=== PATIENT | male | born 1940 | race Caucasian/White ===

== ENCOUNTER 2019-02-18 10:28 | Day surgery (SDC) | payer MEDICARE, BC ==
[~2019-02-18] VITALS: Ht 172.7 cm; Wt 85.2 kg
[2019-02-18] VITALS (8 sets, daily range): BP systolic 107–142; BP diastolic 70–90
[2019-02-18] MEDS ORDERED: midazolam 2 mg/2 ml injection ONE ×2 (10:30→12:03)
[2019-02-18] MEDS ORDERED: heparin 1,000 UNITS/NS 500ml 500 ML ONE (10:31)
[2019-02-18] MEDS ORDERED: iohexol 350MG/ML 100ml bottle IV ONE ×2 (10:31→12:18)
[2019-02-18] MEDS ORDERED: fentaNYL/PF 50MCG/1 ML 2ML syringe ONE (10:31)
[2019-02-18] MEDS ORDERED: LIDOcaine 1% (10mg/ml)w/preservative injection 20ml MDV ONE (10:31)
[2019-02-18] MEDS ORDERED: iohexol 350 MG/ML 50ML vial IV ONE (10:31)
[2019-02-18] MEDS ORDERED: diphenhydrAMINE 25mg capsule PO PRN (10:55)
[2019-02-18] MEDS ORDERED: normal saline 1,000 ML IV SCH (10:55)
[2019-02-18] MEDS ORDERED: METO-539 PO (10:58)
[2019-02-18] MEDS ORDERED: LANS30CA56 PO (10:58)
[2019-02-18] MEDS ORDERED: ALLO100T PO (10:58)
[2019-02-18] MEDS ORDERED: GABA-530 PO (10:58)
[2019-02-18] MEDS ORDERED: GLIM1TAB3 PO (10:58)
[2019-02-18] MEDS ORDERED: B12 (10:58)
[2019-02-18] MEDS ORDERED: FENO160T13 PO (10:58)
[2019-02-18] MEDS ORDERED: AMLO10TA PO (10:58)
[2019-02-18] MEDS ORDERED: ATRNS (10:58)
[2019-02-18] MEDS ORDERED: MUPI22OI30 TOP (10:58)
[2019-02-18] MEDS ORDERED: HYDR12.55 PO (10:58)
[2019-02-18] MEDS ORDERED: POTASSIUM (10:58)
[2019-02-18] MEDS ORDERED: APIX5TAB3 PO (10:58)
[2019-02-18] MEDS ORDERED: OMEP-297 PO (10:58)
[2019-02-18] MEDS ORDERED: LISI40TA4 PO (10:58)
[2019-02-18] MEDS ORDERED: AZEL30SP3 BOTHNARES (10:58)
[2019-02-18] MEDS ORDERED: MULT-1085 PO (10:58)
[2019-02-18] MEDS ORDERED: LINA5TAB4 PO (10:58)
[2019-02-18 11:16] LABS: BASOPHILS % (AUTO) 0.7 % (0-1); EOSINOPHILS # (AUTO) 0.1 X10'3 (0-0.9); EOSINOPHILS % (AUTO) 1.5 % (0-6); HEMATOCRIT 44.7 % (42.0-52.0); HEMOGLOBIN 15.6 g/dl (14.0-17.9); LYMPHOCYTES # (AUTO) 1.1 X10'3 (1.1-4.8); LYMPHOCYTES % (AUTO) 17.3 % (21-51); MEAN CORPUSCULAR HEMOGLOBIN 29.9 PG (27.0-31.0); MEAN CORPUSCULAR HGB CONC 34.8 g/dL (33.0-36.5); MEAN CORPUSCULAR VOLUME 85.7 FL (78-98); MEAN PLATELET VOLUME 9.2 FL (7.4-10.4); MONOCYTES # (AUTO) 0.4 X10'3 (0-0.9); MONOCYTES % (AUTO) 6.8 % (2-12); NEUTROPHILS # (AUTO) 4.7 X10'3 (1.8-7.7); NEUTROPHILS % (AUTO) 73.7 % (42-75); PLATELET COUNT 184 X10'3 (140-440); RED BLOOD COUNT 5.22 X10'6 (4.70-6.10); RED CELL DISTRIBUTION WIDTH 13.8 % (11.5-14.5); WHITE BLOOD COUNT 6.3 X10'3 (4.5-11.0)
[2019-02-18 11:26] LABS: ALBUMIN 4.1 G/DL (3.4-5.0); ANION GAP 11 (8-16); BLOOD UREA NITROGEN 26 MG/DL (7-18); BUN/CREATININE RATIO 21.8 (5.4-32.0); CALCIUM 9.3 MG/DL (8.5-10.1); CHLORIDE 107 MMOL/L (99-107); CREATININE 1.19 MG/DL (0.60-1.10); GLUCOSE 210 MG/DL (70-104); MAGNESIUM 1.8 MG/DL (1.5-2.4); POTASSIUM 3.6 MMOL/L (3.5-5.1); SODIUM 142 MMOL/L (135-145); TOTAL CARBON DIOXIDE 23.6 MMOL/L (24-32); eGFR 59 ML/MIN
[2019-02-18] MEDS ORDERED: heparin 1,000unit/ml 10ml vial 10 ML ONE (12:15)
[2019-02-18] MEDS ORDERED: clopidogrel 300mg tablet ONE (12:30)
[2019-02-18] MEDS ORDERED: ondansetron/PF 4mg/2ml inj IV PRN (12:55)
[2019-02-18] MEDS ORDERED: OXAZEpam 15mg capsule PO PRN (12:55)
[2019-02-18] MEDS ORDERED: normal saline 1000ml 1,000 ML IV SCH (12:55)
[2019-02-18] MEDS ORDERED: proCHLORperazine 10 MG/2 ml inj IV PRN (12:55)
== END 2019-02-18 15:55 | disposition home or self-care (01) ==
LOC: SSTAY O 10:28
PROVIDERS: ATTEND Internal Medicine Cardiovascular Disease
DX: R94.39 Abnormal result of other cardiovascular function study (principal); I25.118 Atherosclerotic heart disease of native coronary artery with other forms of angina pectoris; I35.0 Nonrheumatic aortic (valve) stenosis; E78.5 Hyperlipidemia, unspecified; I10 Essential (primary) hypertension; E11.9 Type 2 diabetes mellitus without complications; M10.9 Gout, unspecified; K21.9 Gastro-esophageal reflux disease without esophagitis; I48.20 Chronic atrial fibrillation, unspecified; Z95.5 Presence of coronary angioplasty implant and graft; Z72.89 Other problems related to lifestyle; Z79.899 Other long term (current) drug therapy
CPT/HCPCS: 36415; 80048; 82948; 83735; 85025; 85610; 93005; 93458; 99152; 99153; C1725; C1769; C1874; C1894; C9600; J1644; J2001; J2250; J3010; J7030; Q0163; Q9967; 92920; A4620; A6258; C1760

== ENCOUNTER 2019-03-01 16:04 | Inpatient (IN) | payer MEDICARE, BC ==
[2019-03-01] VITALS (7 sets, daily range): BP systolic 90–125; BP diastolic 56–67
[~2019-03-01] VITALS: Ht 172.7 cm; Wt 81.3 kg
[2019-03-01] MEDS: pantoprazole 40 MG vial IV SCH (08:00)
[2019-03-01] MEDS: K, MAG and/or Phos replacement - Verify level? MC SCH (08:00)
[~2019-03-01 16:04] MED LIST: ALLO100T PO; AMLO10TA PO; APIX5TAB3 PO; ATRNS; AZEL30SP3 BOTHNARES; B12; FENO160T13 PO; GABA-530 PO; GLIM1TAB3 PO; HYDR12.55 PO; LANS30CA56 PO; LINA5TAB4 PO; LISI40TA4 PO; METO-539 PO; MULT-1085 PO; MUPI22OI30 TOP; OMEP-297 PO; POTASSIUM
[2019-03-01] MEDS ORDERED: acetaminophen 325mg tablet PO PRN ×2 (17:45)
[2019-03-01] MEDS ORDERED: sodium phosphate inj. 15 MMOL in dextrose 5%-water 150 ML IV PRN (17:45)
[2019-03-01] MEDS ORDERED: magnesium 2GM in 50ml NS 50 ML IV PRN (17:45)
[2019-03-01] MEDS ORDERED: Neutra Phos packet PO PRN (17:45)
[2019-03-01] MEDS ORDERED: potassium Cl 20 mEq SR tablet PO PRN ×2 (17:45)
[2019-03-01] MEDS ORDERED: magnesium 4gm in 100ml NS 100 ML IV PRN (17:45)
[2019-03-01] MEDS ORDERED: ondansetron/PF 4mg/2ml inj IV PRN (17:45)
[2019-03-01] MEDS ORDERED: sodium phosphate inj. 30 MMOL in dextrose 5%-water 250 ML IV PRN (17:45)
[2019-03-01] MEDS ORDERED: magnesium Cl slow-release 64mg tablet PO PRN (17:45)
[2019-03-01] MEDS ORDERED: glucagon, human recombinant 1mg kit SUBCUT PRN (17:55)
[2019-03-01] MEDS ORDERED: dextrose ORAL solution 15 GM/59 ML bottle PO PRN ×2 (17:55)
[2019-03-01] MEDS ORDERED: dextrose 50%-water 50ml dispensing syringe IV PRN ×2 (17:55)
[2019-03-01] MEDS ORDERED: MESSAGE TO PHARMACY PO ONE (17:55)
[2019-03-01] MEDS: normal saline 1000ml 1,000 ML IV SCH (18:16)
--- NOTE | 2019-03-01 18:24 | NUR ---
Pt arrived to unit around 1720, A/O x3. Lung sounds clear, bowel sounds normal. Pulses weak but palpable, Cap refill <3sec. Resting now with no discomfort. Report given to carmella CHEN at night.
[2019-03-01 18:33] LABS: HEMOGLOBIN A1C 6.3 % (4.5-6.2)
[2019-03-01 18:34] LABS: PARTIAL THROMBOPLASTIN TIME 23 SECONDS (22-32)
[2019-03-01 18:37] LABS: BASOPHILS % (AUTO) 0.2 % (0-1); EOSINOPHILS % (AUTO) 0 % (0-6); HEMATOCRIT 26.7 % (42.0-52.0); HEMOGLOBIN 9.1 g/dl (14.0-17.9); LYMPHOCYTES # (AUTO) 1.5 X10'3 (1.1-4.8); LYMPHOCYTES % (AUTO) 9.6 % (21-51); MEAN CORPUSCULAR HEMOGLOBIN 29.7 PG (27.0-31.0); MEAN CORPUSCULAR HGB CONC 34.1 g/dL (33.0-36.5); MEAN CORPUSCULAR VOLUME 87.1 FL (78-98); MEAN PLATELET VOLUME 9.5 FL (7.4-10.4); MONOCYTES # (AUTO) 1.3 X10'3 (0-0.9); MONOCYTES % (AUTO) 8.1 % (2-12); NEUTROPHILS # (AUTO) 13.2 X10'3 (1.8-7.7); NEUTROPHILS % (AUTO) 82.1 % (42-75); PLATELET COUNT 120 X10'3 (140-440); RED BLOOD COUNT 3.06 X10'6 (4.70-6.10); RED CELL DISTRIBUTION WIDTH 14.9 % (11.5-14.5); WHITE BLOOD COUNT 16.1 X10'3 (4.5-11.0)
[2019-03-01 18:40] LABS: ALANINE AMINOTRANSFERASE 25 U/L (12-78); ALBUMIN 2.3 G/DL (3.4-5.0); ALBUMIN/GLOBULIN RATIO 1.4 (1.1-1.5); ALKALINE PHOSPHATASE 26 IU/L (46-116); ANION GAP 6 (8-16); ASPARTATE AMINO TRANSFERASE 13 U/L (10-37); BILIRUBIN,TOTAL 0.3 MG/DL (0.1-1.0); BLOOD UREA NITROGEN 65 MG/DL (7-18); BUN/CREATININE RATIO 33.9 (5.4-32.0); CHLORIDE 113 MMOL/L (99-107); CREATININE 1.92 MG/DL (0.60-1.10); GLUCOSE 237 MG/DL (70-104); POTASSIUM 4.6 MMOL/L (3.5-5.1); SODIUM 141 MMOL/L (135-145); TOTAL CARBON DIOXIDE 21.6 MMOL/L (24-32); TOTAL PROTEIN 3.9 G/DL (6.4-8.2); eGFR 34 ML/MIN
--- NOTE | 2019-03-01 18:45 | NUR ---
assumed care from Monse CHEN no questions or concerns after assuming care
[2019-03-01] MEDS: azelastine Nasal Spray bottle NS SCH (20:00)
[2019-03-01] MEDS: ipratropium 0.06% nasal spray 15ml NS SCH (20:00)
[2019-03-01] MEDS: insulin glargine (Lantus) pen - multi-dose SQ SCH (21:00)
--- NOTE | 2019-03-01 21:30 | NUR ---
patient is in bed appears to be sleeping eyes closed covers on rr even un labored no observable s/s of acute bleeding or stress at this time will continue to monitor
[2019-03-01 23:29] LABS: BASOPHILS % (AUTO) 0.2 % (0-1); EOSINOPHILS % (AUTO) 0 % (0-6); HEMATOCRIT 24.2 % (42.0-52.0); HEMOGLOBIN 8.3 g/dl (14.0-17.9); LYMPHOCYTES # (AUTO) 1.3 X10'3 (1.1-4.8); LYMPHOCYTES % (AUTO) 10.7 % (21-51); MEAN CORPUSCULAR HEMOGLOBIN 29.6 PG (27.0-31.0); MEAN CORPUSCULAR HGB CONC 34.2 g/dL (33.0-36.5); MEAN CORPUSCULAR VOLUME 86.7 FL (78-98); MEAN PLATELET VOLUME 9.3 FL (7.4-10.4); MONOCYTES % (AUTO) 7.8 % (2-12); NEUTROPHILS % (AUTO) 81.3 % (42-75); PLATELET COUNT 103 X10'3 (140-440); RED CELL DISTRIBUTION WIDTH 15.1 % (11.5-14.5); WHITE BLOOD COUNT 12.3 X10'3 (4.5-11.0)
--- NOTE | 2019-03-01 23:40 | NUR ---
patient in bed eyes closed rr even un labored no observable s/s of acute bleeding or stress at this time will continue to monitor
[2019-03-01] MEDS: gabapentin 100mg capsule PO SCH (23:55)
[2019-03-01] MEDS: mupirocin 2% nasal ointment 1gm UD NS SCH (23:55)
[2019-03-02] VITALS (21 sets, daily range): BP systolic 88–143; BP diastolic 48–97
--- NOTE | 2019-03-02 02:26 | NUR ---
patient in bed asked for a break from scd's, patients rr even un labored vital signs stable, no observable acute bleeding or stress at this time will continue to monitor
[2019-03-02 03:15] LABS: BASOPHILS % (AUTO) 0.1 % (0-1); EOSINOPHILS % (AUTO) 0 % (0-6); HEMATOCRIT 23.5 % (42.0-52.0); LYMPHOCYTES # (AUTO) 1.5 X10'3 (1.1-4.8); LYMPHOCYTES % (AUTO) 12.7 % (21-51); MEAN CORPUSCULAR HEMOGLOBIN 29.7 PG (27.0-31.0); MEAN CORPUSCULAR HGB CONC 34.1 g/dL (33.0-36.5); MEAN PLATELET VOLUME 9.7 FL (7.4-10.4); MONOCYTES # (AUTO) 0.8 X10'3 (0-0.9); MONOCYTES % (AUTO) 6.9 % (2-12); NEUTROPHILS # (AUTO) 9.3 X10'3 (1.8-7.7); NEUTROPHILS % (AUTO) 80.3 % (42-75); PLATELET COUNT 96 X10'3 (140-440); RED CELL DISTRIBUTION WIDTH 14.7 % (11.5-14.5); WHITE BLOOD COUNT 11.5 X10'3 (4.5-11.0)
[2019-03-02 03:23] LABS: ALANINE AMINOTRANSFERASE 22 U/L (12-78); ALBUMIN 2.3 G/DL (3.4-5.0); ALBUMIN/GLOBULIN RATIO 1.4 (1.1-1.5); ALKALINE PHOSPHATASE 26 IU/L (46-116); ANION GAP 10 (8-16); ASPARTATE AMINO TRANSFERASE 14 U/L (10-37); BILIRUBIN,TOTAL 0.2 MG/DL (0.1-1.0); BLOOD UREA NITROGEN 60 MG/DL (7-18); BUN/CREATININE RATIO 36.1 (5.4-32.0); CALCIUM 7.1 MG/DL (8.5-10.1); CHLORIDE 115 MMOL/L (99-107); CREATININE 1.66 MG/DL (0.60-1.10); GLUCOSE 189 MG/DL (70-104); MAGNESIUM 1.5 MG/DL (1.5-2.4); SODIUM 144 MMOL/L (135-145); TOTAL CARBON DIOXIDE 19.3 MMOL/L (24-32); eGFR 40 ML/MIN
--- NOTE | 2019-03-02 03:40 | NUR ---
patient in bed eyes closed rr even un labored no observable s?s of acute bleeding or stress at this time will continue to monitor
--- NOTE | 2019-03-02 04:40 | NUR ---
patient getting blood drawn appears to be in good mood making small talk rr even un labored no observable s/s of acute bleeding or stress at this time will continue to monitor
[2019-03-02 05:45] LABS: PARTIAL THROMBOPLASTIN TIME 20 SECONDS (22-32)
--- NOTE | 2019-03-02 06:36 | NUR ---
SBAR TO MAUREEN CHEN NO QUESTIONS OR CONCERNS AFTER ASSUMING CARE
[2019-03-02] MEDS: normal saline 1000ml 1,000 ML IV SCH ×2 (07:01→20:21)
[2019-03-02 07:18] LABS: BASOPHILS % (AUTO) 0.4 % (0-1); EOSINOPHILS % (AUTO) 0.3 % (0-6); HEMATOCRIT 22.9 % (42.0-52.0); HEMOGLOBIN 7.8 g/dl (14.0-17.9); LYMPHOCYTES # (AUTO) 1.4 X10'3 (1.1-4.8); LYMPHOCYTES % (AUTO) 12.5 % (21-51); MEAN CORPUSCULAR HEMOGLOBIN 29.6 PG (27.0-31.0); MEAN CORPUSCULAR HGB CONC 34.2 g/dL (33.0-36.5); MEAN CORPUSCULAR VOLUME 86.3 FL (78-98); MEAN PLATELET VOLUME 9.2 FL (7.4-10.4); MONOCYTES # (AUTO) 0.8 X10'3 (0-0.9); NEUTROPHILS # (AUTO) 8.8 X10'3 (1.8-7.7); NEUTROPHILS % (AUTO) 79.8 % (42-75); PLATELET COUNT 106 X10'3 (140-440); RED BLOOD COUNT 2.65 X10'6 (4.70-6.10); RED CELL DISTRIBUTION WIDTH 14.8 % (11.5-14.5); WHITE BLOOD COUNT 11.1 X10'3 (4.5-11.0)
[2019-03-02] MEDS: amLODIPine 5mg tablet PO SCH (08:00)
[2019-03-02] MEDS: K, MAG and/or Phos replacement - Verify level? MC SCH (08:00)
[2019-03-02] MEDS: allopurinol 100mg tablet PO SCH (08:48)
[2019-03-02] MEDS: gabapentin 100mg capsule PO SCH ×2 (08:48→16:55)
[2019-03-02] MEDS: fenofibrate 145mg tablet PO SCH (08:48)
[2019-03-02] MEDS: mupirocin 2% nasal ointment 1gm UD NS SCH ×2 (08:49→16:55)
[2019-03-02] MEDS: multivitamins, therapeutics tablet PO SCH (08:49)
[2019-03-02] MEDS: metoprolol succinate 25mg (24-HOUR) SR. Tablet PO SCH (08:49)
[2019-03-02] MEDS: ipratropium 0.06% nasal spray 15ml NS SCH ×2 (09:53→20:38)
[2019-03-02] MEDS: pantoprazole 40 MG vial IV SCH (09:53)
[2019-03-02] MEDS: azelastine Nasal Spray bottle NS SCH ×2 (09:54→20:37)
--- NOTE | 2019-03-02 10:07 | NUR ---
DM consult: Pt with A1c 6.3, DM education not warranted at this time. Will continue to follow. Addendum: 03/02/19 at [address] Amended: Links added.
[2019-03-02] MEDS ORDERED: fentaNYL/PF 50MCG/1 ML 2ML syringe ONE (10:32)
[2019-03-02] MEDS ORDERED: LIDOcaine Viscous 15ml cup ONE (10:32)
[2019-03-02] MEDS ORDERED: MIDAZolam 5mg/5ml vial ONE (10:32)
[2019-03-02] MEDS ORDERED: epiNEPHrine 0.1mg/ml 10ml syringe ONE (10:33)
[2019-03-02 11:01] LABS: MEAN CORPUSCULAR HEMOGLOBIN 29.9 PG (27.0-31.0); MEAN CORPUSCULAR HGB CONC 34.5 g/dL (33.0-36.5); MEAN CORPUSCULAR VOLUME 86.5 FL (78-98); MEAN PLATELET VOLUME 9.1 FL (7.4-10.4); PLATELET COUNT 112 X10'3 (140-440); RED BLOOD COUNT 2.66 X10'6 (4.70-6.10); RED CELL DISTRIBUTION WIDTH 15.1 % (11.5-14.5); WHITE BLOOD COUNT 10.6 X10'3 (4.5-11.0)
[2019-03-02 14:05] LABS: BASOPHILS % (AUTO) 0.2 % (0-1); EOSINOPHILS % (AUTO) 0.2 % (0-6); HEMOGLOBIN 7.7 g/dl (14.0-17.9); LYMPHOCYTES # (AUTO) 1.3 X10'3 (1.1-4.8); LYMPHOCYTES % (AUTO) 13.7 % (21-51); MEAN CORPUSCULAR HEMOGLOBIN 30.5 PG (27.0-31.0); MONOCYTES # (AUTO) 0.8 X10'3 (0-0.9); MONOCYTES % (AUTO) 7.8 % (2-12); NEUTROPHILS # (AUTO) 7.6 X10'3 (1.8-7.7); NEUTROPHILS % (AUTO) 78.1 % (42-75); PLATELET COUNT 103 X10'3 (140-440); RED BLOOD COUNT 2.53 X10'6 (4.70-6.10); WHITE BLOOD COUNT 9.7 X10'3 (4.5-11.0)
--- NOTE | 2019-03-02 15:30 | NUR ---
received pt. on floor accompanied by . pt. shows no signs of distress. 2 RN skin check done and blood sugar checked before dinner. all needs met at this time.
--- NOTE | 2019-03-02 15:31 | NUR ---
DRY LUMBER GRADER REQUESTED I REVIEW THE CHART FOR POSSIBLE ADMISSION TO ACCE
--- NOTE | 2019-03-02 16:20 | NUR ---
Patient in room MED 312. I have received report from APRIL Martin and had the opportunity to ask questions and assume patient care.
[2019-03-02 17:27] LABS: BASOPHILS % (AUTO) 0.1 % (0-1); EOSINOPHILS # (AUTO) 0.4 X10'3 (0-0.9); EOSINOPHILS % (AUTO) 2.3 % (0-6); HEMATOCRIT 25.4 % (42.0-52.0); HEMOGLOBIN 7.8 g/dl (14.0-17.9); LYMPHOCYTES # (AUTO) 2.4 X10'3 (1.1-4.8); LYMPHOCYTES % (AUTO) 14.7 % (21-51); MEAN CORPUSCULAR HGB CONC 30.8 g/dL (33.0-36.5); MONOCYTES # (AUTO) 0.7 X10'3 (0-0.9); MONOCYTES % (AUTO) 4.2 % (2-12); NEUTROPHILS # (AUTO) 12.8 X10'3 (1.8-7.7); NEUTROPHILS % (AUTO) 78.7 % (42-75); PLATELET COUNT 212 X10'3 (140-440); RED BLOOD COUNT 2.79 X10'6 (4.70-6.10); RED CELL DISTRIBUTION WIDTH 19.2 % (11.5-14.5); WHITE BLOOD COUNT 16.2 X10'3 (4.5-11.0)
--- NOTE | 2019-03-02 18:00 | NUR ---
Patient in room MED 312. I have received report from RORY CHEN and had the opportunity to ask questions and assume patient care.
--- NOTE | 2019-03-02 18:32 | NUR ---
Problems reprioritized. Patient report given, questions answered & plan of care reviewed with APRIL Jones.
[2019-03-02] MEDS: insulin glargine (Lantus) pen - multi-dose SQ SCH (21:00)
[2019-03-03] VITALS (7 sets, daily range): BP systolic 97–120; BP diastolic 55–98
[2019-03-03] MEDS: gabapentin 100mg capsule PO SCH ×4 (02:19→23:30)
[2019-03-03] MEDS: mupirocin 2% nasal ointment 1gm UD NS SCH ×3 (02:40→15:48)
--- NOTE | 2019-03-03 05:59 | NUR ---
Problems reprioritized. Patient report given, questions answered & plan of care reviewed with Eugenia CHEN.
--- NOTE | 2019-03-03 06:10 | NUR ---
Patient in room MED 312. I have received report from APRIL Jones and had the opportunity to ask questions and assume patient care.
[2019-03-03 06:13] LABS: PARTIAL THROMBOPLASTIN TIME 22 SECONDS (22-32)
[2019-03-03 06:20] LABS: ALANINE AMINOTRANSFERASE 25 U/L (12-78); ALBUMIN 2.3 G/DL (3.4-5.0); ALBUMIN/GLOBULIN RATIO 1.4 (1.1-1.5); ALKALINE PHOSPHATASE 27 IU/L (46-116); ANION GAP 7 (8-16); ASPARTATE AMINO TRANSFERASE 18 U/L (10-37); BASOPHILS % (AUTO) 0.4 % (0-1); BILIRUBIN,TOTAL 0.2 MG/DL (0.1-1.0); BLOOD UREA NITROGEN 25 MG/DL (7-18); BUN/CREATININE RATIO 22.1 (5.4-32.0); CALCIUM 7.6 MG/DL (8.5-10.1); CHLORIDE 114 MMOL/L (99-107); CREATININE 1.13 MG/DL (0.60-1.10); EOSINOPHILS # (AUTO) 0.1 X10'3 (0-0.9); EOSINOPHILS % (AUTO) 1.1 % (0-6); GLUCOSE 119 MG/DL (70-104); LYMPHOCYTES # (AUTO) 1.4 X10'3 (1.1-4.8); LYMPHOCYTES % (AUTO) 20.9 % (21-51); MAGNESIUM 1.9 MG/DL (1.5-2.4); MEAN CORPUSCULAR HEMOGLOBIN 30.6 PG (27.0-31.0); MEAN CORPUSCULAR HGB CONC 35.4 g/dL (33.0-36.5); MEAN CORPUSCULAR VOLUME 86.3 FL (78-98); MEAN PLATELET VOLUME 8.6 FL (7.4-10.4); MONOCYTES # (AUTO) 0.4 X10'3 (0-0.9); MONOCYTES % (AUTO) 6.7 % (2-12); NEUTROPHILS # (AUTO) 4.6 X10'3 (1.8-7.7); NEUTROPHILS % (AUTO) 70.9 % (42-75); PHOSPHORUS 2.2 MG/DL (2.3-4.5); PLATELET COUNT 100 X10'3 (140-440); POTASSIUM 3.7 MMOL/L (3.5-5.1); RED BLOOD COUNT 2.25 X10'6 (4.70-6.10); RED CELL DISTRIBUTION WIDTH 14.9 % (11.5-14.5); SODIUM 145 MMOL/L (135-145); TOTAL CARBON DIOXIDE 24.1 MMOL/L (24-32); WHITE BLOOD COUNT 6.4 X10'3 (4.5-11.0); eGFR 63 ML/MIN
[2019-03-03 06:34] LABS: HEMATOCRIT 19.5 % (42.0-52.0); HEMOGLOBIN 6.9 g/dl (14.0-17.9)
[2019-03-03] MEDS ORDERED: magnesium hydroxide 30ml (MOM) UD suspension PO PRN (07:30)
[2019-03-03 07:32] LABS: NUCLEATED RED BLOOD CELLS 3 /100WBC (0-0); PLATELET ESTIMATE DECREASED; POLYCHROMASIA 2+; TOTAL CELLS COUNTED 100
[2019-03-03 07:33] LABS: ANISOCYTOSIS 1+
--- NOTE | 2019-03-03 07:35 | NUR ---
Spoke with Angelika Jason regarding critical Hgb & Hct 6.9/19.5. Received orders for 1 unit PRBC as well as milk of magnesia. Will continue to monitor.
[2019-03-03] MEDS: amLODIPine 5mg tablet PO SCH (08:00)
[2019-03-03] MEDS: K, MAG and/or Phos replacement - Verify level? MC SCH (08:00)
[2019-03-03] MEDS: pantoprazole 40 MG vial IV SCH (08:06)
[2019-03-03] MEDS: multivitamins, therapeutics tablet PO SCH (08:06)
[2019-03-03] MEDS: allopurinol 100mg tablet PO SCH (08:07)
[2019-03-03] MEDS: azelastine Nasal Spray bottle NS SCH ×2 (08:07→19:11)
[2019-03-03] MEDS: ipratropium 0.06% nasal spray 15ml NS SCH ×2 (08:07→19:12)
[2019-03-03] MEDS: metoprolol succinate 25mg (24-HOUR) SR. Tablet PO SCH (08:07)
[2019-03-03] MEDS: fenofibrate 145mg tablet PO SCH (08:07)
[2019-03-03 09:07] LABS: BASOPHILS % (AUTO) 0.4 % (0-1); EOSINOPHILS # (AUTO) 0.1 X10'3 (0-0.9); EOSINOPHILS % (AUTO) 0.8 % (0-6); HEMATOCRIT 22.9 % (42.0-52.0); HEMOGLOBIN 7.9 g/dl (14.0-17.9); LYMPHOCYTES # (AUTO) 1.3 X10'3 (1.1-4.8); LYMPHOCYTES % (AUTO) 16.1 % (21-51); MEAN CORPUSCULAR HEMOGLOBIN 30.5 PG (27.0-31.0); MEAN CORPUSCULAR HGB CONC 34.5 g/dL (33.0-36.5); MEAN CORPUSCULAR VOLUME 88.4 FL (78-98); MONOCYTES # (AUTO) 0.5 X10'3 (0-0.9); MONOCYTES % (AUTO) 6.3 % (2-12); NEUTROPHILS # (AUTO) 6.4 X10'3 (1.8-7.7); NEUTROPHILS % (AUTO) 76.4 % (42-75); RED BLOOD COUNT 2.59 X10'6 (4.70-6.10); RED CELL DISTRIBUTION WIDTH 15.3 % (11.5-14.5); WHITE BLOOD COUNT 8.3 X10'3 (4.5-11.0)
--- NOTE | 2019-03-03 09:12 | NUR ---
H&H WNL; 1 unit PRBC cancelled. Upon arrival to laboratory to pick remover ordered PRBC, per laboratory chemical assistant, 0800 CBC resulted H&H 7.9/22.9. Called Angelika Jason with results, received orders to cancel the blood transfusion. Also received orders to stop Q6 CBCs and change to daily labs.
[2019-03-03] MEDS: normal saline 1000ml 1,000 ML IV SCH ×2 (10:16→19:13)
--- NOTE | 2019-03-03 11:45 | NUR ---
Repeat CBC due to bloody stool. Patient had a bloody, maroon liquid bowel movement at 1115. Patient appears pale, blood pressure 118/64. NS infusing at 75mL/hr per orders. Patient does not report dizziness, lightheadedness, or fatigue. Spoke with Angelika Jason, received orders to repeat CBC in 1-2 hours and will then reevaluate plan of care.
--- NOTE | 2019-03-03 13:14 | NUR ---
Spoke with Dr. Rob Updated on patient condition, current labs and vital signs. Received orders to make patient NPO now.
[2019-03-03 13:22] LABS: BASOPHILS % (AUTO) 0.4 % (0-1); EOSINOPHILS # (AUTO) 0.1 X10'3 (0-0.9); EOSINOPHILS % (AUTO) 0.8 % (0-6); HEMATOCRIT 23.7 % (42.0-52.0); HEMOGLOBIN 8.2 g/dl (14.0-17.9); LYMPHOCYTES # (AUTO) 1.5 X10'3 (1.1-4.8); LYMPHOCYTES % (AUTO) 16.8 % (21-51); MEAN CORPUSCULAR HEMOGLOBIN 30.5 PG (27.0-31.0); MEAN CORPUSCULAR HGB CONC 34.6 g/dL (33.0-36.5); MEAN CORPUSCULAR VOLUME 88.2 FL (78-98); MEAN PLATELET VOLUME 8.9 FL (7.4-10.4); MONOCYTES # (AUTO) 0.7 X10'3 (0-0.9); MONOCYTES % (AUTO) 7.2 % (2-12); NEUTROPHILS # (AUTO) 6.9 X10'3 (1.8-7.7); NEUTROPHILS % (AUTO) 74.8 % (42-75); PLATELET COUNT 136 X10'3 (140-440); RED BLOOD COUNT 2.69 X10'6 (4.70-6.10); RED CELL DISTRIBUTION WIDTH 15.1 % (11.5-14.5); WHITE BLOOD COUNT 9.2 X10'3 (4.5-11.0)
--- NOTE | 2019-03-03 14:27 | NUR ---
Spoke with Angelika Jason regarding plan of care. Reported current H&H of 8.2/23.7 increased from 7.9/22.9. No orders received at this time, patient will remain NPO to be seen by either Dr. Chakraborty or Dr. Rob for further evaluation.
[2019-03-03] MEDS ORDERED: lactulose 20gm/30ml cup PO PRN (17:45)
--- NOTE | 2019-03-03 18:05 | NUR ---
Problems reprioritized. Patient report given, questions answered & plan of care reviewed with APRIL Orellana.
--- NOTE | 2019-03-03 18:15 | NUR ---
Patient in room MED 312. I have received report from APRIL Song and had the opportunity to ask questions and assume patient care.
[2019-03-03] MEDS: insulin glargine (Lantus) pen - multi-dose SQ SCH (21:00)
[2019-03-04] MEDS: mupirocin 2% nasal ointment 1gm UD NS SCH
[2019-03-04 02:00] VITALS: BP 107/73
[2019-03-04 06:00] VITALS: BP 125/55
[2019-03-04 06:07] LABS: PARTIAL THROMBOPLASTIN TIME 22 SECONDS (22-32)
[2019-03-04 06:08] LABS: BASOPHILS % (AUTO) 0.4 % (0-1); EOSINOPHILS # (AUTO) 0.1 X10'3 (0-0.9); EOSINOPHILS % (AUTO) 1.8 % (0-6); HEMATOCRIT 22.4 % (42.0-52.0); HEMOGLOBIN 7.7 g/dl (14.0-17.9); LYMPHOCYTES # (AUTO) 1.1 X10'3 (1.1-4.8); LYMPHOCYTES % (AUTO) 20.9 % (21-51); MEAN CORPUSCULAR HEMOGLOBIN 30.9 PG (27.0-31.0); MEAN CORPUSCULAR HGB CONC 34.6 g/dL (33.0-36.5); MEAN CORPUSCULAR VOLUME 89.2 FL (78-98); MEAN PLATELET VOLUME 8.6 FL (7.4-10.4); MONOCYTES # (AUTO) 0.4 X10'3 (0-0.9); MONOCYTES % (AUTO) 7.4 % (2-12); NEUTROPHILS # (AUTO) 3.6 X10'3 (1.8-7.7); NEUTROPHILS % (AUTO) 69.5 % (42-75); PLATELET COUNT 108 X10'3 (140-440); RED BLOOD COUNT 2.51 X10'6 (4.70-6.10); WHITE BLOOD COUNT 5.2 X10'3 (4.5-11.0)
[2019-03-04 06:18] LABS: ALANINE AMINOTRANSFERASE 34 U/L (12-78); ALBUMIN 2.6 G/DL (3.4-5.0); ALBUMIN/GLOBULIN RATIO 1.4 (1.1-1.5); ALKALINE PHOSPHATASE 34 IU/L (46-116); ANION GAP 8 (8-16); ASPARTATE AMINO TRANSFERASE 32 U/L (10-37); BILIRUBIN,TOTAL 0.4 MG/DL (0.1-1.0); BLOOD UREA NITROGEN 17 MG/DL (7-18); BUN/CREATININE RATIO 15.9 (5.4-32.0); CHLORIDE 111 MMOL/L (99-107); CREATININE 1.07 MG/DL (0.60-1.10); GLUCOSE 137 MG/DL (70-104); MAGNESIUM 2.2 MG/DL (1.5-2.4); PHOSPHORUS 2.6 MG/DL (2.3-4.5); POTASSIUM 3.5 MMOL/L (3.5-5.1); SODIUM 143 MMOL/L (135-145); TOTAL CARBON DIOXIDE 24.2 MMOL/L (24-32); TOTAL PROTEIN 4.5 G/DL (6.4-8.2); eGFR 67 ML/MIN
--- NOTE | 2019-03-04 06:19 | NUR ---
Problems reprioritized. Patient report given, questions answered & plan of care reviewed with APRIL Gregorio.
--- NOTE | 2019-03-04 06:21 | NUR ---
Patient in room MED 312. I have received report from APRIL Orellana and had the opportunity to ask questions and assume patient care.
[2019-03-04] MEDS: azelastine Nasal Spray bottle NS SCH ×2 (07:22→20:46)
[2019-03-04] MEDS: pantoprazole 40 MG vial IV SCH (07:22)
[2019-03-04] MEDS: gabapentin 100mg capsule PO SCH ×3 (07:23→23:00)
[2019-03-04] MEDS: ipratropium 0.06% nasal spray 15ml NS SCH ×2 (07:23→20:46)
[2019-03-04] MEDS: multivitamins, therapeutics tablet PO SCH (07:24)
[2019-03-04] MEDS: normal saline 1000ml 1,000 ML IV SCH (07:27)
[2019-03-04] MEDS ORDERED: normal saline 1000ml 1,000 ML IV SCH (07:30)
[2019-03-04] MEDS: fenofibrate 145mg tablet PO SCH (07:33)
[2019-03-04] MEDS: amLODIPine 5mg tablet PO SCH (07:34)
[2019-03-04] MEDS: allopurinol 100mg tablet PO SCH (07:34)
[2019-03-04] MEDS: metoprolol succinate 25mg (24-HOUR) SR. Tablet PO SCH (07:34)
[2019-03-04] MEDS: K, MAG and/or Phos replacement - Verify level? MC SCH (07:58)
[2019-03-04] MEDS: oseltamivir phos 75mg capsule PO SCH (10:00)
[2019-03-04 11:00] VITALS: BP 120/63
[2019-03-04 12:16] LABS: HEMATOCRIT 24.8 % (42.0-52.0); HEMOGLOBIN 8.5 g/dl (14.0-17.9); MEAN CORPUSCULAR HEMOGLOBIN 30.6 PG (27.0-31.0); MEAN CORPUSCULAR HGB CONC 34.1 g/dL (33.0-36.5); MEAN CORPUSCULAR VOLUME 89.7 FL (78-98); MEAN PLATELET VOLUME 8.8 FL (7.4-10.4); PLATELET COUNT 145 X10'3 (140-440); RED BLOOD COUNT 2.77 X10'6 (4.70-6.10); RED CELL DISTRIBUTION WIDTH 14.9 % (11.5-14.5); WHITE BLOOD COUNT 6.4 X10'3 (4.5-11.0)
--- NOTE | 2019-03-04 12:30 | NUR ---
Patient was recently able to have solid foods per Dr. Rob. The new dietary changes completed in chart. Patient notified me that he has a gluten allergy. I updated the chart and then I contacted dietary and spoke with Lucio the leaf sticker. He stated that he would contact the kitchen to make sure that the change was noted. Kitchen staff did call back to confirm.
[2019-03-04 15:00] VITALS: BP 122/70
[2019-03-04 17:14] LABS: HEMATOCRIT 23.8 % (42.0-52.0); HEMOGLOBIN 8.1 g/dl (14.0-17.9); MEAN CORPUSCULAR HEMOGLOBIN 30.5 PG (27.0-31.0); MEAN CORPUSCULAR HGB CONC 34.3 g/dL (33.0-36.5); MEAN PLATELET VOLUME 8.8 FL (7.4-10.4); PLATELET COUNT 140 X10'3 (140-440); RED BLOOD COUNT 2.67 X10'6 (4.70-6.10); RED CELL DISTRIBUTION WIDTH 15.4 % (11.5-14.5)
--- NOTE | 2019-03-04 18:19 | NUR ---
Problems reprioritized. Patient report given, questions answered & plan of care reviewed with APRIL Floyd.
[2019-03-04] MEDS: insulin Lispro (HumaLOG) vial - multi-dose SQ SCH (18:33)
[2019-03-04 18:50] VITALS: BP 100/60
[2019-03-04] MEDS: insulin glargine (Lantus) pen - multi-dose SQ SCH (20:47)
[2019-03-04 22:00] VITALS: BP 92/59
[2019-03-05 02:54] VITALS: BP 122/78
[2019-03-05 02:59] LABS: BASOPHILS % (AUTO) 0.6 % (0-1); EOSINOPHILS # (AUTO) 0.2 X10'3 (0-0.9); EOSINOPHILS % (AUTO) 2.3 % (0-6); HEMATOCRIT 27.3 % (42.0-52.0); HEMOGLOBIN 9.6 g/dl (14.0-17.9); LYMPHOCYTES # (AUTO) 1.4 X10'3 (1.1-4.8); LYMPHOCYTES % (AUTO) 21.5 % (21-51); MEAN CORPUSCULAR HEMOGLOBIN 30.7 PG (27.0-31.0); MEAN CORPUSCULAR HGB CONC 35.1 g/dL (33.0-36.5); MEAN CORPUSCULAR VOLUME 87.6 FL (78-98); MEAN PLATELET VOLUME 8.5 FL (7.4-10.4); MONOCYTES # (AUTO) 0.3 X10'3 (0-0.9); MONOCYTES % (AUTO) 4.9 % (2-12); NEUTROPHILS # (AUTO) 4.7 X10'3 (1.8-7.7); NEUTROPHILS % (AUTO) 70.7 % (42-75); PLATELET COUNT 169 X10'3 (140-440); RED BLOOD COUNT 3.12 X10'6 (4.70-6.10); RED CELL DISTRIBUTION WIDTH 15.1 % (11.5-14.5); WHITE BLOOD COUNT 6.7 X10'3 (4.5-11.0)
[2019-03-05 03:09] LABS: PARTIAL THROMBOPLASTIN TIME 21 SECONDS (22-32)
[2019-03-05 03:16] LABS: ALANINE AMINOTRANSFERASE 56 U/L (12-78); ALBUMIN 3.3 G/DL (3.4-5.0); ALBUMIN/GLOBULIN RATIO 1.3 (1.1-1.5); ALKALINE PHOSPHATASE 45 IU/L (46-116); ANION GAP 9 (8-16); ASPARTATE AMINO TRANSFERASE 37 U/L (10-37); BILIRUBIN,TOTAL 0.5 MG/DL (0.1-1.0); BLOOD UREA NITROGEN 16 MG/DL (7-18); BUN/CREATININE RATIO 12.9 (5.4-32.0); CALCIUM 8.8 MG/DL (8.5-10.1); CHLORIDE 109 MMOL/L (99-107); CREATININE 1.24 MG/DL (0.60-1.10); GLUCOSE 118 MG/DL (70-104); MAGNESIUM 2.4 MG/DL (1.5-2.4); POTASSIUM 3.7 MMOL/L (3.5-5.1); SODIUM 143 MMOL/L (135-145); TOTAL CARBON DIOXIDE 25.3 MMOL/L (24-32); TOTAL PROTEIN 5.9 G/DL (6.4-8.2); eGFR 56 ML/MIN
--- NOTE | 2019-03-05 06:05 | NUR ---
Patient in room MED 312. I have received report from APRIL Floyd and had the opportunity to ask questions and assume patient care.
[2019-03-05 06:20] VITALS: BP 105/65
--- NOTE | 2019-03-05 06:20 | NUR ---
Problems reprioritized. Patient report given, questions answered & plan of care reviewed with Fracisco CHEN.
[2019-03-05] MEDS: metoprolol succinate 25mg (24-HOUR) SR. Tablet PO SCH (07:35)
[2019-03-05] MEDS: pantoprazole 40 MG vial IV SCH (07:35)
[2019-03-05] MEDS: gabapentin 100mg capsule PO SCH ×2 (07:35→16:35)
[2019-03-05] MEDS: fenofibrate 145mg tablet PO SCH (07:35)
[2019-03-05] MEDS: multivitamins, therapeutics tablet PO SCH (07:35)
[2019-03-05] MEDS: allopurinol 100mg tablet PO SCH (07:35)
[2019-03-05] MEDS: K, MAG and/or Phos replacement - Verify level? MC SCH (07:36)
[2019-03-05] MEDS: azelastine Nasal Spray bottle NS SCH ×2 (07:36→20:32)
[2019-03-05] MEDS: ipratropium 0.06% nasal spray 15ml NS SCH ×2 (07:36→20:32)
[2019-03-05] MEDS: oseltamivir phos 75mg capsule PO SCH (08:41)
[2019-03-05] MEDS: insulin Lispro (HumaLOG) vial - multi-dose SQ SCH ×3 (08:44→18:25)
--- NOTE | 2019-03-05 10:08 | NUR ---
Initial: Pt admit with lower GIB. Per MD note H/H trending upward and no sign of bleeding. Pt on CHO controlled diet and documented with 100% PO intake meeting nutrient needs. [facility] 03/03. No nutrition diagnosis at this time. Will continue to follow. Recommendations: 1) Continue CHO controlled diet 2) Bowel care PRN 3) Wt per rx Addendum: 03/05/19 at [address] Amended: Links added.
[2019-03-05 11:00] VITALS: BP 115/70
[2019-03-05 13:05] LABS: HEMATOCRIT 26.1 % (42.0-52.0); MEAN CORPUSCULAR HEMOGLOBIN 30.9 PG (27.0-31.0); MEAN CORPUSCULAR HGB CONC 34.3 g/dL (33.0-36.5); MEAN CORPUSCULAR VOLUME 90.2 FL (78-98); MEAN PLATELET VOLUME 8.9 FL (7.4-10.4); PLATELET COUNT 178 X10'3 (140-440); RED CELL DISTRIBUTION WIDTH 15.2 % (11.5-14.5); WHITE BLOOD COUNT 6.5 X10'3 (4.5-11.0)
--- NOTE | 2019-03-05 13:30 | NUR ---
CALLED DR. MARION TO ASK HIM TO EVALUATE PATIENT FOR READINESS FOR DISCHARGE. NO ANSWER, LEFT A MESSAGE WITH A CALL BACK NUMBER. DR. DURAND IS ON VACATION PER HIS ANSWERING SERVICE.
[2019-03-05 15:00] VITALS: BP 112/63
[2019-03-05 18:00] VITALS: BP 114/64
[2019-03-05 18:10] LABS: HEMATOCRIT 27.1 % (42.0-52.0); HEMOGLOBIN 9.3 g/dl (14.0-17.9); MEAN CORPUSCULAR HEMOGLOBIN 30.9 PG (27.0-31.0); MEAN CORPUSCULAR HGB CONC 34.5 g/dL (33.0-36.5); MEAN CORPUSCULAR VOLUME 89.6 FL (78-98); MEAN PLATELET VOLUME 8.8 FL (7.4-10.4); PLATELET COUNT 179 X10'3 (140-440); RED BLOOD COUNT 3.02 X10'6 (4.70-6.10); RED CELL DISTRIBUTION WIDTH 15.1 % (11.5-14.5); WHITE BLOOD COUNT 7.1 X10'3 (4.5-11.0)
--- NOTE | 2019-03-05 18:20 | NUR ---
Patient in room MED 312. I have received report from APRIL Bello and had the opportunity to ask questions and assume patient care.
--- NOTE | 2019-03-05 18:30 | NUR ---
Problems reprioritized. Patient report given, questions answered & plan of care reviewed with APRIL Orellana.
[2019-03-05] MEDS: insulin glargine (Lantus) pen - multi-dose SQ SCH (20:38)
[2019-03-05 22:00] VITALS: BP 100/56
[2019-03-06] MEDS: gabapentin 100mg capsule PO SCH ×2 (01:07→09:01)
[2019-03-06 02:00] VITALS: BP 120/58
[2019-03-06 06:00] VITALS: BP 114/73
--- NOTE | 2019-03-06 06:00 | NUR ---
Patient in room MED 312. I have received report from APRIL Calixto and had the opportunity to ask questions and assume patient care.
[2019-03-06 06:19] LABS: BASOPHILS % (AUTO) 0.5 % (0-1); EOSINOPHILS # (AUTO) 0.1 X10'3 (0-0.9); EOSINOPHILS % (AUTO) 2.2 % (0-6); HEMATOCRIT 25.5 % (42.0-52.0); HEMOGLOBIN 8.8 g/dl (14.0-17.9); LYMPHOCYTES # (AUTO) 1.1 X10'3 (1.1-4.8); LYMPHOCYTES % (AUTO) 17.5 % (21-51); MEAN CORPUSCULAR HEMOGLOBIN 30.6 PG (27.0-31.0); MEAN CORPUSCULAR HGB CONC 34.4 g/dL (33.0-36.5); MEAN CORPUSCULAR VOLUME 89.1 FL (78-98); MEAN PLATELET VOLUME 8.7 FL (7.4-10.4); MONOCYTES # (AUTO) 0.4 X10'3 (0-0.9); MONOCYTES % (AUTO) 6.1 % (2-12); NEUTROPHILS # (AUTO) 4.5 X10'3 (1.8-7.7); NEUTROPHILS % (AUTO) 73.7 % (42-75); PLATELET COUNT 168 X10'3 (140-440); RED BLOOD COUNT 2.86 X10'6 (4.70-6.10); RED CELL DISTRIBUTION WIDTH 15.5 % (11.5-14.5); WHITE BLOOD COUNT 6.1 X10'3 (4.5-11.0)
--- NOTE | 2019-03-06 06:30 | NUR ---
Problems reprioritized. Patient report given, questions answered & plan of care reviewed with APRIL Rebolledo.
[2019-03-06 06:36] LABS: PARTIAL THROMBOPLASTIN TIME 21 SECONDS (22-32)
[2019-03-06 06:45] LABS: ALANINE AMINOTRANSFERASE 50 U/L (12-78); ALBUMIN 3.1 G/DL (3.4-5.0); ALBUMIN/GLOBULIN RATIO 1.3 (1.1-1.5); ALKALINE PHOSPHATASE 43 IU/L (46-116); ANION GAP 6 (8-16); ASPARTATE AMINO TRANSFERASE 31 U/L (10-37); BILIRUBIN,TOTAL 0.4 MG/DL (0.1-1.0); BLOOD UREA NITROGEN 18 MG/DL (7-18); BUN/CREATININE RATIO 14.6 (5.4-32.0); CALCIUM 8.7 MG/DL (8.5-10.1); CHLORIDE 109 MMOL/L (99-107); CREATININE 1.23 MG/DL (0.60-1.10); GLUCOSE 123 MG/DL (70-104); MAGNESIUM 2.3 MG/DL (1.5-2.4); PHOSPHORUS 3.7 MG/DL (2.3-4.5); POTASSIUM 3.9 MMOL/L (3.5-5.1); SODIUM 141 MMOL/L (135-145); TOTAL CARBON DIOXIDE 26.4 MMOL/L (24-32); TOTAL PROTEIN 5.4 G/DL (6.4-8.2); eGFR 57 ML/MIN
[2019-03-06] MEDS: ipratropium 0.06% nasal spray 15ml NS SCH (09:00)
[2019-03-06] MEDS: pantoprazole 40 MG vial IV SCH (09:00)
[2019-03-06] MEDS: oseltamivir phos 75mg capsule PO SCH (09:01)
[2019-03-06] MEDS: azelastine Nasal Spray bottle NS SCH (09:01)
[2019-03-06] MEDS: metoprolol succinate 25mg (24-HOUR) SR. Tablet PO SCH (09:02)
[2019-03-06] MEDS: multivitamins, therapeutics tablet PO SCH (09:02)
[2019-03-06] MEDS: allopurinol 100mg tablet PO SCH (09:03)
[2019-03-06] MEDS: fenofibrate 145mg tablet PO SCH (09:03)
[2019-03-06] MEDS: insulin Lispro (HumaLOG) vial - multi-dose SQ SCH (09:14)
--- NOTE | 2019-03-06 10:14 | NUR ---
MAX with answering service with Dr. Rob's office
[2019-03-06 11:00] VITALS: BP 118/59
--- NOTE | 2019-03-06 11:00 | NUR ---
Dr. Cortez D/C pt, wants RN to leave message with process analyst Dr. Lee regarding D/C eqliuis. RN LM with Dr. Lee.
[2019-03-06 11:23] LABS: HEMATOCRIT 25.6 % (42.0-52.0); HEMOGLOBIN 8.8 g/dl (14.0-17.9); MEAN CORPUSCULAR HEMOGLOBIN 30.8 PG (27.0-31.0); MEAN CORPUSCULAR HGB CONC 34.4 g/dL (33.0-36.5); MEAN CORPUSCULAR VOLUME 89.5 FL (78-98); MEAN PLATELET VOLUME 8.5 FL (7.4-10.4); PLATELET COUNT 171 X10'3 (140-440); RED BLOOD COUNT 2.86 X10'6 (4.70-6.10); RED CELL DISTRIBUTION WIDTH 15.8 % (11.5-14.5); WHITE BLOOD COUNT 6.1 X10'3 (4.5-11.0)
[2019-03-06] MEDS ORDERED: PANT-47 PO (12:01)
--- NOTE | 2019-03-06 14:05 | NUR ---
Pt D/C to home to family members. He waited for a ride till 1405 on unit. RN provided patient teaching on Afib, DM Survival Skills, and medication teachings. All questions answered. Pt left unit with personal belongings, able to ambulate with normal gait with family members at 1405.
== END 2019-03-06 14:05 | disposition home or self-care (01) | DRG 378 ==
LOC: CICU 2S 17:20 → MED 3N 03-02 17:10
PROVIDERS: ATTEND Internal Medicine Critical Care Medicine
PROC: 0DJ08ZZ Inspection of Upper Intestinal Tract, Via Natural or Artificial Opening Endoscopic (ICD-10-PCS; principal; 2019-03-02)
PROC: 0W3P8ZZ Control Bleeding in Gastrointestinal Tract, Via Natural or Artificial Opening Endoscopic (ICD-10-PCS; 2019-03-02)
DX: K26.4 Chronic or unspecified duodenal ulcer with hemorrhage (principal); D62 Acute posthemorrhagic anemia; I48.20 Chronic atrial fibrillation, unspecified; E11.9 Type 2 diabetes mellitus without complications; I10 Essential (primary) hypertension; I25.10 Atherosclerotic heart disease of native coronary artery without angina pectoris; K57.10 Diverticulosis of small intestine without perforation or abscess without bleeding; Z95.5 Presence of coronary angioplasty implant and graft; Z88.5 Allergy status to narcotic agent; Z79.899 Other long term (current) drug therapy
CPT/HCPCS: 36415; 43235; 80053; 82948; 83036; 83735; 84100; 85025; 85027; 85610; 85730; 86885; 86900; 86901; 86920; 87081; 99152; C9113; G0378; J0171; J1815; J2250; J3010; J7030

== ENCOUNTER 2020-07-20 08:45 | Emergency (ER) | payer MEDICARE, BC ==
[~2020-07-20] VITALS: Ht 172.7 cm; Wt 84.3 kg
[~2020-07-20 08:45] MED LIST changes: +AMA1T PO; -AMLO10TA PO; -APIX5TAB3 PO; -B12; -GLIM1TAB3 PO; +LISI40TA13 PO; -LISI40TA4 PO; -OMEP-297 PO; +PANT-47 PO
[2020-07-20 09:32] LABS: BASOPHILS % (AUTO) 0.3 % (0-1); EOSINOPHILS % (AUTO) 0.3 % (0-6); HEMATOCRIT 48.6 % (42.0-52.0); HEMOGLOBIN 16.5 g/dl (14.0-17.9); LYMPHOCYTES # (AUTO) 0.6 X10'3 (1.1-4.8); LYMPHOCYTES % (AUTO) 4.9 % (21-51); MEAN CORPUSCULAR VOLUME 85.3 FL (78-98); MEAN PLATELET VOLUME 9.4 FL (7.4-10.4); MONOCYTES % (AUTO) 7.6 % (2-12); NEUTROPHILS # (AUTO) 11.1 X10'3 (1.8-7.7); NEUTROPHILS % (AUTO) 86.9 % (42-75); PLATELET COUNT 169 X10'3 (140-440); RED CELL DISTRIBUTION WIDTH 14.3 % (11.5-14.5); WHITE BLOOD COUNT 12.8 X10'3 (4.5-11.0)
[2020-07-20 09:38] LABS: ALANINE AMINOTRANSFERASE 38 U/L (12-78); ALBUMIN/GLOBULIN RATIO 1.2 (1.1-1.5); ALKALINE PHOSPHATASE 58 IU/L (46-116); ANION GAP 12 (8-16); ASPARTATE AMINO TRANSFERASE 33 U/L (10-37); BLOOD UREA NITROGEN 17 MG/DL (7-18); BUN/CREATININE RATIO 16.3 (5.4-32.0); CALCIUM 9.2 MG/DL (8.5-10.1); CHLORIDE 106 MMOL/L (99-107); CREATININE 1.04 MG/DL (0.60-1.10); GLUCOSE 160 MG/DL (70-104); LIPASE 100 U/L (73-393); POTASSIUM 3.3 MMOL/L (3.5-5.1); SODIUM 141 MMOL/L (135-145); TOTAL CARBON DIOXIDE 23.2 MMOL/L (24-32); TOTAL PROTEIN 7.4 G/DL (6.4-8.2); eGFR 69 ML/MIN
[2020-07-20] MEDS ORDERED: ondansetron/PF 4mg/2ml inj IV ONE (10:35)
[2020-07-20] MEDS ORDERED: morphine 2 MG/ML inj. syringe IV PRN (10:35)
--- NOTE | 2020-07-20 10:43 | NUR ---
PT TO CT WITH INSURANCE INVESTIGATOR VIA RIC[employer]
[2020-07-20 10:45] LABS: CLARITY,URINE CLEAR (Clear); COLOR,URINE STRAW (Yellow); GLUCOSE, URINE 100 mg/dl (Neg); KETONES,URINE NEGATIVE (Neg); LEUKOCYTE ESTERASE ,URINE NEGATIVE (Neg); NITRITES, URINE NEGATIVE (Neg); OCCULT BLOOD,URINE NEGATIVE (Neg); PH,URINE 5.5 (4.8-8.0); PROTEIN,URINE NEGATIVE (Neg); UROBILINOGEN,URINE 0.2 E.U/dL (0.2-1.0)
[2020-07-20 10:52] LABS: UA COLLECTION TYPE URINAL
[2020-07-20] MEDS ORDERED: piperacillin/tazo 3.375gm/50ml 50 ML IV ONE (12:15)
[2020-07-20] MEDS ORDERED: AMOX-580 PO (12:48)
[2020-07-20] MEDS ORDERED: HYDR-3965 PO (12:48)
[2020-07-20] MEDS ORDERED: ONDA4TAB12 PO (12:48)
[2020-07-20 13:26] VITALS: BP 155/70
== END 2020-07-20 13:28 | disposition home or self-care (01) ==
LOC: ER 08:45
DX: K57.92 Diverticulitis of intestine, part unspecified, without perforation or abscess without bleeding (principal); R10.32 Left lower quadrant pain; I48.91 Unspecified atrial fibrillation; I10 Essential (primary) hypertension; Z88.5 Allergy status to narcotic agent; Z88.8 Allergy status to other drugs, medicaments and biological substances; Z79.2 Long term (current) use of antibiotics; Z79.899 Other long term (current) drug therapy
CPT/HCPCS: 36415; 74176; 80053; 81003; 83690; 84145; 85025; 96361; 96374; 96375; 99284; J2270; J2405; J2543

== ENCOUNTER 2020-08-03 10:11 | Day surgery (SDC) | payer MEDICARE, BC ==
[~2020-08-03] VITALS: Ht 172.7 cm; Wt 86.4 kg
[2020-08-03] VITALS (7 sets, daily range): BP systolic 110–146; BP diastolic 64–90
[~2020-08-03 10:11] MED LIST changes: +AMOX-580 PO; +HYDR-3965 PO; +ONDA4TAB12 PO
[2020-08-03] MEDS ORDERED: cefazolin/dext.iso 2gm/100ml 100 ML IV ONE (10:35)
[2020-08-03] MEDS ORDERED: LANTUS SQ (10:47)
[2020-08-03] MEDS ORDERED: PANT-47 PO (10:47)
[2020-08-03] MEDS ORDERED: ASPI-1265 PO (10:49)
[2020-08-03 10:57] LABS: BASOPHILS # (AUTO) 0.1 X10'3 (0-0.2); BASOPHILS % (AUTO) 0.7 % (0-1); EOSINOPHILS # (AUTO) 0.2 X10'3 (0-0.9); EOSINOPHILS % (AUTO) 2.1 % (0-6); HEMATOCRIT 46.9 % (42.0-52.0); HEMOGLOBIN 16.2 g/dl (14.0-17.9); LYMPHOCYTES # (AUTO) 1.2 X10'3 (1.1-4.8); MEAN CORPUSCULAR HEMOGLOBIN 29.2 PG (27.0-31.0); MEAN CORPUSCULAR HGB CONC 34.5 g/dL (33.0-36.5); MEAN CORPUSCULAR VOLUME 84.8 FL (78-98); MEAN PLATELET VOLUME 9.2 FL (7.4-10.4); MONOCYTES # (AUTO) 0.7 X10'3 (0-0.9); MONOCYTES % (AUTO) 7.3 % (2-12); NEUTROPHILS % (AUTO) 76.9 % (42-75); PLATELET COUNT 202 X10'3 (140-440); RED BLOOD COUNT 5.54 X10'6 (4.70-6.10); RED CELL DISTRIBUTION WIDTH 13.9 % (11.5-14.5); WHITE BLOOD COUNT 9.1 X10'3 (4.5-11.0)
[2020-08-03 11:35] LABS: ANION GAP 11 (8-16); BLOOD UREA NITROGEN 18 MG/DL (7-18); BUN/CREATININE RATIO 18.8 (5.4-32.0); CALCIUM 9.2 MG/DL (8.5-10.1); CHLORIDE 107 MMOL/L (99-107); CREATININE 0.96 MG/DL (0.60-1.10); GLUCOSE 124 MG/DL (70-104); MAGNESIUM 1.8 MG/DL (1.5-2.4); POTASSIUM 3.7 MMOL/L (3.5-5.1); SODIUM 143 MMOL/L (135-145); TOTAL CARBON DIOXIDE 25.4 MMOL/L (24-32); eGFR 75 ML/MIN
[2020-08-03] MEDS ORDERED: fentaNYL/PF 50MCG/1 ML 2ML syringe ONE ×2 (12:04→13:05)
[2020-08-03] MEDS ORDERED: vancomycin 1,000mg inj ONE (12:04)
[2020-08-03] MEDS ORDERED: midazolam 1 mg/ML 2ml injection ONE ×3 (12:04→13:05)
[2020-08-03] MEDS ORDERED: LIDOcaine 1% W/epiNEPHrine 1:100,000 20ml vial ONE (12:04)
[2020-08-03] MEDS ORDERED: ceFAZolin 2gm in dextrose, iso 50 ML IV ONE (12:56)
--- NOTE | 2020-08-03 14:00 | NUR ---
Patient back from scientific laboratory supervisor. Procedure site dressing to upper left chest CDI, no bleeding or hematoma noted.
[2020-08-03] MEDS ORDERED: HYDROcodone/acetaminophen 5mg/325mg tablet PO PRN (14:10)
[2020-08-03] MEDS ORDERED: HYDROcodone/acetaminophen 10/325mg tab PO PRN (14:10)
[2020-08-03] MEDS ORDERED: normal saline 500ml IV soln 500 ML IV SCH (14:10)
== END 2020-08-03 16:20 | disposition home or self-care (01) ==
LOC: SSTAY O 10:11
PROVIDERS: ATTEND Internal Medicine Cardiovascular Disease
DX: I49.5 Sick sinus syndrome (principal); I48.19 Other persistent atrial fibrillation; I25.118 Atherosclerotic heart disease of native coronary artery with other forms of angina pectoris; Z95.5 Presence of coronary angioplasty implant and graft; I10 Essential (primary) hypertension; E78.5 Hyperlipidemia, unspecified; E11.9 Type 2 diabetes mellitus without complications; K21.9 Gastro-esophageal reflux disease without esophagitis; I35.0 Nonrheumatic aortic (valve) stenosis; M10.9 Gout, unspecified; Z88.5 Allergy status to narcotic agent; Z88.8 Allergy status to other drugs, medicaments and biological substances; Z91.018 Allergy to other foods; Z79.82 Long term (current) use of aspirin; Z79.4 Long term (current) use of insulin; Z79.899 Other long term (current) drug therapy; Z79.01 Long term (current) use of anticoagulants
CPT/HCPCS: 33207; 36415; 71045; 80048; 83735; 85025; 85610; 93005; 99152; 99153; C1786; C1894; C1898; J2250; J3010; J3370; J7040; A4565; A4620; A6258

== ENCOUNTER 2021-01-27 06:51 | Day surgery (SDC) | payer MEDICARE, BC ==
[2021-01-21 12:18] LABS: BASOPHILS % (AUTO) 0.6 % (0-1); EOSINOPHILS # (AUTO) 0.3 X10'3 (0-0.9); EOSINOPHILS % (AUTO) 4.6 % (0-6); LYMPHOCYTES # (AUTO) 0.8 X10'3 (1.1-4.8); LYMPHOCYTES % (AUTO) 10.4 % (21-51); MEAN CORPUSCULAR HEMOGLOBIN 29.4 PG (27.0-31.0); MEAN CORPUSCULAR HGB CONC 34.3 g/dL (33.0-36.5); MEAN CORPUSCULAR VOLUME 85.7 FL (78-98); MEAN PLATELET VOLUME 9.1 FL (7.4-10.4); MONOCYTES # (AUTO) 0.5 X10'3 (0-0.9); MONOCYTES % (AUTO) 7.1 % (2-12); NEUTROPHILS # (AUTO) 5.7 X10'3 (1.8-7.7); NEUTROPHILS % (AUTO) 77.3 % (42-75); PRE OP HEMATOCRIT 45.8 % (42.0-52.0); PRE OP HEMOGLOBIN 15.7 g/dL (14.0-17.9); PRE OP PLATELET COUNT 158 X10'3 (140-440); RED BLOOD COUNT 5.34 X10'6 (4.70-6.10); RED CELL DISTRIBUTION WIDTH 14.3 % (11.5-14.5)
[2021-01-21 12:23] LABS: PARTIAL THROMBOPLASTIN TIME 26 SECONDS (22-32)
[2021-01-21 12:28] LABS: ALBUMIN 3.7 G/DL (3.4-5.0); ALBUMIN/GLOBULIN RATIO 1.2 (1.1-1.5); ALKALINE PHOSPHATASE 52 IU/L (46-116); BLOOD UREA NITROGEN 18 MG/DL (7-18); BUN/CREATININE RATIO 14.8 (5.4-32.0); CALCIUM 9.1 MG/DL (8.5-10.1); CHLORIDE 106 MMOL/L (99-107); CREATININE 1.22 MG/DL (0.60-1.10); PRE OP ALT 43 U/L (30-65); PRE OP ANION GAP 10 (8-16); PRE OP AST 37 U/L (10-37); PRE OP BILIRUB, TOTAL 0.4 MG/DL (0.0-1.0); PRE OP POTASSIUM 3.9 MMOL/L (3.4-5.1); PRE OP SODIUM 141 MMOL/L (135-145); TOTAL PROTEIN 6.9 G/DL (6.4-8.2); eGFR 57 ML/MIN
[2021-01-21 12:30] LABS: PRE OP GLUCOSE 294 MG/DL (70-104)
[~2021-01-27] VITALS: Ht 172.7 cm; Wt 83.2 kg
[2021-01-27] VITALS (11 sets, daily range): BP systolic 154–164; BP diastolic 91–118
[~2021-01-27 06:51] MED LIST changes: -AMA1T PO; -AMOX-580 PO; +ASPI-1265 PO; -ATRNS; -AZEL30SP3 BOTHNARES; +DOCUMENT DATE & TIME OF BETA-BLOCKER PO ONE; -GABA-530 PO; -HYDR-3965 PO; -HYDR12.55 PO; +INSU100V9 SQ; +LAN0.125T PO; -LANS30CA56 PO; +LANTUS SQ; +LISI20TA28 PO; -LISI40TA13 PO; +METO-384 PO; -METO-539 PO; +METO50TA7 PO; -MULT-1085 PO; -MUPI22OI30 TOP; -ONDA4TAB12 PO; -POTASSIUM; +cefazolin/dext.iso 2gm/50ml IV ONE; +famotidine 20mg tablet PO ONE; +ringers solution, lacted 1,000 ML IV SCH
[2021-01-27] MEDS ORDERED: BUPIVAcaine/PF 2.5 mg/ml (0.25%) 30ml vial ONE (10:18)
[2021-01-27] MEDS ORDERED: fentaNYL/PF 50MCG/1 ML 2ML syringe ONE (10:36)
[2021-01-27] MEDS ORDERED: midazolam 1 mg/ML 2ml injection ONE (10:37)
[2021-01-27] MEDS ORDERED: ringers solution, lacted 1,000 ML IV SCH (11:00)
[2021-01-27] MEDS ORDERED: ondansetron/PF 4mg/2ml inj IV PRN (11:00)
[2021-01-27] MEDS ORDERED: morphine 2 MG/ML inj. syringe IV PRN (11:00)
[2021-01-27] MEDS ORDERED: meperidine/PF 25mg/ml syringe IV PRN ×3 (11:00)
[2021-01-27] MEDS ORDERED: proCHLORperazine 10 MG/2 ml inj IV PRN (11:00)
[2021-01-27] MEDS ORDERED: propofol inj 20 ML IV ONE (11:10)
[2021-01-27] MEDS ORDERED: neostigmine methylsulfate 1 MG/ML 10ml vial ONE (11:10)
[2021-01-27] MEDS ORDERED: rocuronium 10mg/ml inj IV ONE (11:10)
[2021-01-27] MEDS ORDERED: glycopyrrolate 0.2mg/ml inj ONE (11:11)
[2021-01-27] MEDS ORDERED: acetaminophen 1,000mg/100ml IV 100 ML IV ONE (11:11)
--- NOTE | 2021-01-27 11:29 | NUR ---
FROM OR ON GURNEY. COMBATIVE, FLINGING HIMSELF AROUND IN THE GURNEY. STATES ABD HURTS LIKE HELL. ABD DSG STERISTRIPS X 2, SMALL AMT BLOODY DNG. ICE PLACED, MED WITH MORPHINE, DR IZQUIERDO AT SIDE. VS, BP HIGH, DR. IZQUIERDO AWARE, ELECTS NOT TO TREAT, JUST TREAT FOR PAIN AT THIS TIME. SKIN WARM, DRY, NO RESP DISTRESS.
[2021-01-27] MEDS: morphine 4 MG/ML inj SYRINge IV PRN ×3 (11:42→12:15)
--- NOTE | 2021-01-27 11:59 | NUR ---
MED AGAIN FOR PAIN, PT IS COOPERATIVE RIGHT NOW. TOLERATING SIPS OF WATER. STATES PAIN IS STILL SEVERE, BUT IS DISPLAYING SOME SIGNS THAT HE IS MORE COMFORTABLE.
[2021-01-27] MEDS ORDERED: HYDROcodone/acetaminophen 5mg/325mg tablet PO ONE (12:20)
--- NOTE | 2021-01-27 12:20 | NUR ---
STILL CO PAIN, VSS, MEDICATED WITH FINAL DOSE OF MORPHINE. REQUESTED NORCO ORDER.
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
== END 2021-01-27 13:19 | disposition home or self-care (01) ==
LOC: PAS 06:51 → UNDOADMIN 06:53 → PAS IN 06:53 → EDSTATUS 10:00 → PAS 13:19
PROVIDERS: ATTEND Surgery
DX: K42.9 Umbilical hernia without obstruction or gangrene (principal); E11.9 Type 2 diabetes mellitus without complications; M10.9 Gout, unspecified; E87.5 Hyperkalemia; I10 Essential (primary) hypertension; I25.10 Atherosclerotic heart disease of native coronary artery without angina pectoris; I48.91 Unspecified atrial fibrillation; K21.9 Gastro-esophageal reflux disease without esophagitis; E53.8 Deficiency of other specified B group vitamins; M19.90 Unspecified osteoarthritis, unspecified site; E66.3 Overweight; Z68.27 Body mass index [BMI] 27.0-27.9, adult; Z79.01 Long term (current) use of anticoagulants; Z20.822 Contact with and (suspected) exposure to COVID-19; Z88.5 Allergy status to narcotic agent; Z88.8 Allergy status to other drugs, medicaments and biological substances; Z91.018 Allergy to other foods; Z87.891 Personal history of nicotine dependence; Z95.5 Presence of coronary angioplasty implant and graft; Z95.0 Presence of cardiac pacemaker; Z72.89 Other problems related to lifestyle; Z83.3 Family history of diabetes mellitus; Z80.9 Family history of malignant neoplasm, unspecified
CPT/HCPCS: 36415; 49652; 80053; 82948; 85025; 85610; 85730; 93005; C1781; J0131; J2175; J2250; J2270; J2704; J2710; J3010; J3490; J7030; U0003; U0005; Z7506; Z7512; A4215; A4618; A7000; J7120

== ENCOUNTER 2022-04-27 14:56 | Outpatient (CLI) | payer MEDICARE, BC ==
[~2022-04-27 14:56] MED LIST changes: -DOCUMENT DATE & TIME OF BETA-BLOCKER PO ONE; -cefazolin/dext.iso 2gm/50ml IV ONE; -famotidine 20mg tablet PO ONE; -ringers solution, lacted 1,000 ML IV SCH
[2022-04-27 16:16] LABS: BASOPHILS % (AUTO) 0.5 % (0-1); EOSINOPHILS # (AUTO) 0.1 X10'3 (0-0.9); LYMPHOCYTES # (AUTO) 0.8 X10'3 (1.1-4.8); LYMPHOCYTES % (AUTO) 15.7 % (21-51); MEAN CORPUSCULAR HEMOGLOBIN 29.8 PG (27.0-31.0); MEAN CORPUSCULAR HGB CONC 33.2 g/dL (33.0-36.5); MEAN CORPUSCULAR VOLUME 89.7 FL (78-98); MEAN PLATELET VOLUME 9.2 FL (7.4-10.4); MONOCYTES # (AUTO) 0.4 X10'3 (0-0.9); MONOCYTES % (AUTO) 7.8 % (2-12); NEUTROPHILS # (AUTO) 3.6 X10'3 (1.8-7.7); PRE OP HEMATOCRIT 40.8 % (42.0-52.0); PRE OP HEMOGLOBIN 13.5 g/dL (14.0-17.9); PRE OP PLATELET COUNT 133 X10'3 (140-440); RED BLOOD COUNT 4.54 X10'6 (4.70-6.10); RED CELL DISTRIBUTION WIDTH 13.9 % (11.5-14.5)
[2022-04-27] MEDS ORDERED: SENN-137 (16:16)
[2022-04-27] MEDS ORDERED: OMEG-5 PO (16:16)
[2022-04-27 16:21] LABS: ALBUMIN 3.6 G/DL (3.4-5.0); ALBUMIN/GLOBULIN RATIO 1.1 (1.1-1.5); ALKALINE PHOSPHATASE 57 IU/L (46-116); BLOOD UREA NITROGEN 14 MG/DL (7-18); BUN/CREATININE RATIO 10.4 (5.4-32.0); CALCIUM 9.2 MG/DL (8.5-10.1); CHLORIDE 107 MMOL/L (99-107); CREATININE 1.34 MG/DL (0.60-1.10); PRE OP ALT 32 U/L (30-65); PRE OP ANION GAP 10 (8-16); PRE OP AST 29 U/L (10-37); PRE OP BILIRUB, TOTAL 0.3 MG/DL (0.0-1.0); PRE OP POTASSIUM 3.8 MMOL/L (3.4-5.1); PRE OP SODIUM 139 MMOL/L (135-145); TOTAL PROTEIN 6.8 G/DL (6.4-8.2); eGFR 51 ML/MIN
[2022-04-27 16:27] LABS: PRE OP GLUCOSE 360 MG/DL (70-104)
[2022-04-27] MEDS ORDERED: SEMA0.25 SQ (17:03)
== END 2022-04-27 23:59 | disposition home or self-care (01) ==
LOC: LAB 14:56 → EDSTATUS 05-03 12:15
PROVIDERS: ATTEND Surgery
DX: Z01.818 Encounter for other preprocedural examination (principal); K66.0 Peritoneal adhesions (postprocedural) (postinfection); E11.9 Type 2 diabetes mellitus without complications; E87.5 Hyperkalemia; I10 Essential (primary) hypertension
CPT/HCPCS: 36415; 80053; 83036; 85025; 86885; 86900; 86901; 93005

== ENCOUNTER 2022-06-24 14:03 | Emergency (ER) | payer MEDICARE, BC ==
[~2022-06-24] VITALS: Ht 172.7 cm; Wt 85.0 kg
[~2022-06-24 14:03] MED LIST changes: -ALLO100T PO; -LISI20TA28 PO; -METO50TA7 PO; +OMEG-5 PO; +SEMA0.25 SQ; +SENN-137
[2022-06-24 14:59] LABS: BASOPHILS % (AUTO) 0.4 % (0-1); EOSINOPHILS # (AUTO) 0.1 X10'3 (0-0.9); EOSINOPHILS % (AUTO) 1.2 % (0-6); HEMATOCRIT 45.9 % (42.0-52.0); HEMOGLOBIN 15.5 g/dl (14.0-17.9); LYMPHOCYTES # (AUTO) 0.9 X10'3 (1.1-4.8); LYMPHOCYTES % (AUTO) 9.1 % (21-51); MEAN CORPUSCULAR HEMOGLOBIN 29.6 PG (27.0-31.0); MEAN CORPUSCULAR HGB CONC 33.8 g/dL (33.0-36.5); MEAN CORPUSCULAR VOLUME 87.7 FL (78-98); MEAN PLATELET VOLUME 9.1 FL (7.4-10.4); MONOCYTES # (AUTO) 0.6 X10'3 (0-0.9); MONOCYTES % (AUTO) 6.1 % (2-12); NEUTROPHILS # (AUTO) 8.5 X10'3 (1.8-7.7); NEUTROPHILS % (AUTO) 83.2 % (42-75); PLATELET COUNT 178 X10'3 (140-440); RED BLOOD COUNT 5.23 X10'6 (4.70-6.10); RED CELL DISTRIBUTION WIDTH 14.2 % (11.5-14.5); WHITE BLOOD COUNT 10.3 X10'3 (4.5-11.0)
[2022-06-24 15:16] LABS: ALANINE AMINOTRANSFERASE 40 U/L (12-78); ALBUMIN 4.4 G/DL (3.4-5.0); ALBUMIN/GLOBULIN RATIO 1.4 (1.1-1.5); ALKALINE PHOSPHATASE 70 IU/L (46-116); ANION GAP 14 (8-16); ASPARTATE AMINO TRANSFERASE 27 U/L (10-37); BILIRUBIN,TOTAL 0.7 MG/DL (0.1-1.0); BLOOD UREA NITROGEN 19 MG/DL (7-18); BUN/CREATININE RATIO 15.4 (10.0-20.0); CALCIUM 9.7 MG/DL (8.5-10.1); CHLORIDE 107 MMOL/L (99-107); CREATININE 1.23 MG/DL (0.60-1.10); GLUCOSE 190 MG/DL (70-104); LIPASE 93 U/L (73-393); POTASSIUM 3.8 MMOL/L (3.5-5.1); SODIUM 144 MMOL/L (135-145); TOTAL PROTEIN 7.5 G/DL (6.4-8.2); eGFR 56 ML/MIN
[2022-06-24 16:34] LABS: CLARITY,URINE CLOUDY (Clear); COLOR,URINE YELLOW (Yellow); GLUCOSE, URINE 500 mg/dl (Neg); KETONES,URINE TRACE mg/dl (Neg); LEUKOCYTE ESTERASE ,URINE NEGATIVE (Neg); NITRITES, URINE NEGATIVE (Neg); OCCULT BLOOD,URINE NEGATIVE (Neg); PROTEIN,URINE TRACE mg/dl (Neg); UROBILINOGEN,URINE 0.2 E.U/dL (0.2-1.0)
[2022-06-24 16:37] LABS: UA COLLECTION TYPE CLN CATCH MIDSTREAM
[2022-06-24 16:41] LABS: MUCUS STRANDS MANY /LPF (Neg); SQUAMOUS EPITHELIAL CELL,UR FEW /LPF (FEW)
[2022-06-24 16:43] LABS: BACTERIA,URINE 1+ /HPF (Neg); RBC,URINE 0-2 /HPF (0-2); WBC,URINE 0-4 /HPF (0-4)
[2022-06-24 17:34] VITALS: BP 132/74
== END 2022-06-24 17:36 | disposition home or self-care (01) ==
LOC: ER 14:05
DX: R10.84 Generalized abdominal pain (principal); I11.9 Hypertensive heart disease without heart failure
CPT/HCPCS: 36415; 74019; 80053; 81001; 83690; 85025; 99284

== ENCOUNTER 2022-10-12 11:52 | Inpatient (IN) | payer MEDICARE, BC ==
[~2022-10-12] VITALS: Ht 172.7 cm; Wt 86.4 kg
[2022-10-12 12:58] LABS: ALANINE AMINOTRANSFERASE 40 U/L (12-78); ALBUMIN 4.3 G/DL (3.4-5.0); ALBUMIN/GLOBULIN RATIO 1.1 (1.1-1.5); ALKALINE PHOSPHATASE 73 IU/L (46-116); ANION GAP 13 (8-16); ASPARTATE AMINO TRANSFERASE 32 U/L (10-37); BILIRUBIN,TOTAL 0.6 MG/DL (0.1-1.0); BLOOD UREA NITROGEN 15 MG/DL (7-18); BUN/CREATININE RATIO 11.8 (10.0-20.0); CALCIUM 10.6 MG/DL (8.5-10.1); CHLORIDE 102 MMOL/L (99-107); CREATININE 1.27 MG/DL (0.60-1.10); GLUCOSE 317 MG/DL (70-104); LIPASE 104 U/L (73-393); POTASSIUM 3.8 MMOL/L (3.5-5.1); SODIUM 138 MMOL/L (135-145); TOTAL CARBON DIOXIDE 22.7 MMOL/L (24-32); TOTAL PROTEIN 8.1 G/DL (6.4-8.2); eGFR 54 ML/MIN
[2022-10-12 13:09] LABS: BASOPHILS # (AUTO) 0.1 X10'3 (0-0.2); BASOPHILS % (AUTO) 0.4 % (0-1); EOSINOPHILS # (AUTO) 0.2 X10'3 (0-0.9); EOSINOPHILS % (AUTO) 1.2 % (0-6); HEMATOCRIT 49.4 % (42.0-52.0); HEMOGLOBIN 16.9 g/dl (14.0-17.9); LYMPHOCYTES # (AUTO) 0.9 X10'3 (1.1-4.8); LYMPHOCYTES % (AUTO) 6.6 % (21-51); MEAN CORPUSCULAR HEMOGLOBIN 29.3 PG (27.0-31.0); MEAN CORPUSCULAR HGB CONC 34.3 g/dL (33.0-36.5); MEAN CORPUSCULAR VOLUME 85.6 FL (78-98); MEAN PLATELET VOLUME 9.9 FL (7.4-10.4); MONOCYTES # (AUTO) 0.9 X10'3 (0-0.9); MONOCYTES % (AUTO) 6.8 % (2-12); NEUTROPHILS # (AUTO) 11.3 X10'3 (1.8-7.7); PLATELET COUNT 196 X10'3 (140-440); RED BLOOD COUNT 5.77 X10'6 (4.70-6.10); RED CELL DISTRIBUTION WIDTH 14.4 % (11.5-14.5); WHITE BLOOD COUNT 13.2 X10'3 (4.5-11.0)
[2022-10-12] MEDS ORDERED: morphine 4 MG/ML inj SYRINge IV ONE ×2 (15:15→19:35)
[2022-10-12] MEDS ORDERED: ondansetron 4mg rapidly disintigrating tab PO ONE (15:15)
[2022-10-12] MEDS ORDERED: acetaminophen 325mg tablet PO PRN ×2 (17:45)
[2022-10-12] MEDS ORDERED: potassium Cl 20 mEq SR tablet PO PRN ×2 (17:45)
[2022-10-12] MEDS: normal saline 1000ml 1,000 ML IV SCH (17:45)
[2022-10-12] MEDS ORDERED: potassium Cl 40MEQ/1/2NS 520ml 520 ML IV PRN (17:45)
[2022-10-12] MEDS ORDERED: magnesium 2GM in 50ml NS 50 ML IV PRN (17:45)
[2022-10-12] MEDS ORDERED: magnesium Cl slow-release 64mg tablet PO PRN (17:45)
[2022-10-12] MEDS ORDERED: magnesium 4gm in 100ml NS 100 ML IV PRN (17:45)
[2022-10-12] MEDS ORDERED: CefTRIAXone 2gm/D5W 50ml BAG 50 ML IV ONE (17:50)
[2022-10-12 18:08] LABS: C-REACTIVE PROTEIN 0.38 MG/DL (0.0-0.5)
[2022-10-12] MEDS ORDERED: FENO160T PO (18:40)
[2022-10-12] MEDS ORDERED: AZEL137S4 BOTHNARES (18:40)
[2022-10-12] MEDS ORDERED: PANT40TA54 PO (18:40)
[2022-10-12] MEDS ORDERED: normal saline 1000ML IV soln IVB ONE (18:50)
[2022-10-12] MEDS ORDERED: MESSAGE TO PHARMACY PO ONE (19:15)
[2022-10-12] MEDS ORDERED: DEXTROSE 15 GM of carb/4 tabs (each vial/BOTTLE has 4 tablets) PO PRN ×2 (19:15)
[2022-10-12] MEDS ORDERED: glucagon, human recombinant 1mg kit SUBCUT PRN (19:15)
[2022-10-12] MEDS ORDERED: dextrose 50%-water 50ml dispensing syringe IV PRN ×2 (19:15)
[2022-10-12] MEDS: heparin, porcine 5000 units/ml vial SQ SCH (19:45)
[2022-10-12 21:01] LABS: COLOR,URINE YELLOW (Yellow); GLUCOSE, URINE >=1000 mg/dl (Neg); KETONES,URINE NEGATIVE (Neg); LEUKOCYTE ESTERASE ,URINE NEGATIVE (Neg); NITRITES, URINE NEGATIVE (Neg); OCCULT BLOOD,URINE NEGATIVE (Neg); PH,URINE 5.5 (4.8-8.0); PROTEIN,URINE 30 mg/dl (Neg); UROBILINOGEN,URINE 0.2 E.U/dL (0.2-1.0)
[2022-10-12 21:08] LABS: CLARITY,URINE SLIGHTLY CLOUDY (Clear); UA COLLECTION TYPE CLN CATCH MIDSTREAM
[2022-10-12 21:17] LABS: RBC,URINE 0-2 /HPF (0-2)
[2022-10-12 21:18] LABS: BACTERIA,URINE 2+ /HPF (Neg); HYALINE CASTS >30 /LPF (NEGATIVE); SQUAMOUS EPITHELIAL CELL,UR FEW /LPF (FEW)
[2022-10-12] MEDS: insulin glargine (Lantus) pen - multi-dose SQ SCH (21:37)
[2022-10-12] MEDS: insulin Lispro (HumaLOG) vial - multi-dose SQ SCH (21:39)
[2022-10-12] MEDS: morphine 2 MG/ML inj. syringe IV PRN (23:59)
[2022-10-13] VITALS (7 sets, daily range): BP systolic 145–184; BP diastolic 80–108; PULSE 75–103; RESP 14–19; TEMP 97.8–98.1; O2SAT 95–100
[2022-10-13] MEDS: ondansetron/PF 4mg/2ml inj IV PRN ×2 (00:04→11:32)
--- NOTE | 2022-10-13 03:30 | NUR ---
reposition pt for comfort, gave warm blankets and pillow, pend admit
[2022-10-13] MEDS: morphine 2 MG/ML inj. syringe IV PRN (04:41)
[2022-10-13 07:59] LABS: BASOPHILS % (AUTO) 0.3 % (0-1); EOSINOPHILS % (AUTO) 0.2 % (0-6); HEMATOCRIT 48.1 % (42.0-52.0); HEMOGLOBIN 16.3 g/dl (14.0-17.9); LYMPHOCYTES # (AUTO) 0.9 X10'3 (1.1-4.8); LYMPHOCYTES % (AUTO) 7.8 % (21-51); MEAN CORPUSCULAR HEMOGLOBIN 29.2 PG (27.0-31.0); MEAN CORPUSCULAR VOLUME 85.9 FL (78-98); MEAN PLATELET VOLUME 9.2 FL (7.4-10.4); MONOCYTES # (AUTO) 0.9 X10'3 (0-0.9); MONOCYTES % (AUTO) 7.3 % (2-12); NEUTROPHILS % (AUTO) 84.4 % (42-75); PLATELET COUNT 193 X10'3 (140-440); RED BLOOD COUNT 5.59 X10'6 (4.70-6.10); RED CELL DISTRIBUTION WIDTH 14.6 % (11.5-14.5); WHITE BLOOD COUNT 11.8 X10'3 (4.5-11.0)
[2022-10-13] MEDS: heparin, porcine 5000 units/ml vial SQ SCH ×2 (08:00→20:00)
[2022-10-13] MEDS: normal saline 1000ml 1,000 ML IV SCH (08:03)
[2022-10-13 08:36] LABS: ALANINE AMINOTRANSFERASE 31 U/L (12-78); ALBUMIN 3.8 G/DL (3.4-5.0); ALBUMIN/GLOBULIN RATIO 1.1 (1.1-1.5); ALKALINE PHOSPHATASE 62 IU/L (46-116); ANION GAP 14 (8-16); ASPARTATE AMINO TRANSFERASE 28 U/L (10-37); BILIRUBIN,TOTAL 0.8 MG/DL (0.1-1.0); BLOOD UREA NITROGEN 22 MG/DL (7-18); BUN/CREATININE RATIO 18.3 (10.0-20.0); CALCIUM 9.5 MG/DL (8.5-10.1); CHLORIDE 103 MMOL/L (99-107); GLUCOSE 229 MG/DL (70-104); POTASSIUM 3.7 MMOL/L (3.5-5.1); SODIUM 143 MMOL/L (135-145); TOTAL CARBON DIOXIDE 26.5 MMOL/L (24-32); TOTAL PROTEIN 7.3 G/DL (6.4-8.2); eGFR 58 ML/MIN
--- NOTE | 2022-10-13 08:38 | NUR ---
Ariadna Zapata (daughter) [phone].
[2022-10-13 08:53] LABS: HEMOGLOBIN A1C 9.1 % (4.5-6.2)
[2022-10-13] MEDS: insulin Lispro (HumaLOG) vial - multi-dose SQ SCH ×2 (09:08→14:14)
--- NOTE | 2022-10-13 09:48 | NUR ---
ASSISTING RN WITH PT CARE, DR SHERMAN AT BEDSIDE TO EVALUATE PT, GAVE VERBAL ORDER TO CLAMP NGTUBE IF PT PUTS OUT 50ML OR LESS IN THE NEXT 2 HOURS, DIONNE CHEN AWARE
--- NOTE | 2022-10-13 10:02 | NUR ---
ATTEMPTED TO CALL REPORT TO ORTHO PER UNITE LABOR RELATIONS TEACHER NURSE IS ON BREAK AND CHARGE IS BUSY AT THIS TIME.
--- NOTE | 2022-10-13 10:39 | NUR ---
Received report from APRIL Sheppard from the ED. Patient is stable, A&Ox4, VS stable. Awaiting for possible Sx today w. Dr. Honeycutt. Patient remaining on NPO. Will be transferred up to the fourth floor in room 4010 A.
--- NOTE | 2022-10-13 18:16 | NUR ---
Patient left to the OR via gurthai. NAD at this time. NG tube still in place, IV infusing per MD orders. BS prior is 146, not covering for pre-op. Attempted to call OR x2 no answer to relay report. Patient has remained NPO.
--- NOTE | 2022-10-13 18:26 | NUR ---
Problems reprioritized. Patient report given, questions answered & plan of care reviewed with APRIL Linn.
--- NOTE | 2022-10-13 18:30 | NUR ---
Patient in room ORTHO 4010. I have received report from Kelli COLEMAN and had the opportunity to ask questions and assume patient care.
[2022-10-13] MEDS: insulin glargine (Lantus) pen - multi-dose SQ SCH (21:00)
[2022-10-13] MEDS ORDERED: ondansetron/PF 4mg/2ml inj IV PRN (21:35)
[2022-10-13] MEDS ORDERED: meperidine/PF 25mg/ml syringe IV PRN ×3 (21:35)
[2022-10-13] MEDS ORDERED: proCHLORperazine 10 MG/2 ml inj IV PRN (21:35)
[2022-10-13] MEDS ORDERED: ringers solution, lacted 1,000 ML IV SCH (21:35)
[2022-10-13] MEDS ORDERED: morphine 2 MG/ML inj. syringe IV PRN (21:35)
[2022-10-13] MEDS ORDERED: hydrALAZINE 20mg/ml inj. IV PRN (21:35)
[2022-10-13] MEDS ORDERED: labetalol 20mg/4ml (5mg/ml) syringe IV PRN (21:35)
[2022-10-13] MEDS ORDERED: acetaminophen 1,000mg/100ml IV 100 ML IV PRN (21:35)
[2022-10-13] MEDS ORDERED: morphine 4 MG/ML inj SYRINge IV PRN (21:35)
[2022-10-13] MEDS ORDERED: sevoflurane 250ml liquid IH ONE (21:49)
[2022-10-13] MEDS ORDERED: midazolam 1 mg/ML 2ml injection ONE (21:59)
[2022-10-13] MEDS ORDERED: ROPIVAcaine 0.5% (5mg/ml) 30ml vial IJ ONE (22:15)
[2022-10-13] MEDS ORDERED: fentaNYL /PF 50mcg/ml 5ml ampule ONE (22:16)
[2022-10-13] MEDS ORDERED: LIDOcaine 2% (20mg/ml) 5ml vial ONE (22:35)
[2022-10-13] MEDS ORDERED: ondansetron/PF 4mg/2ml inj ONE (22:35)
[2022-10-13] MEDS ORDERED: rocuronium 10mg/ml inj IV ONE (22:35)
[2022-10-13] MEDS ORDERED: ceFOXitin 1000 MG inj ONE ×2 (22:35)
[2022-10-13] MEDS ORDERED: propofol inj 20 ML IV ONE (22:35)
[2022-10-13] MEDS ORDERED: dexamethasone sod phosphate 4mg/ml inj. ONE (22:35)
[2022-10-13] MEDS ORDERED: ROPIVAcaine 0.5% (5mg/ml) 30ml vial ONE (22:44)
[2022-10-13] MEDS ORDERED: glycopyrrolate 0.2mg/ml inj ONE (22:52)
[2022-10-13] MEDS ORDERED: neostigmine methylsulfate 1 MG/ML 10ml vial ONE (22:52)
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
--- NOTE | 2022-10-13 23:45 | NUR ---
Received report from post op nurse. Patient to follow shortly.
--- NOTE | 2022-10-13 23:55 | NUR ---
Patient arrived to floor on bed from recovery. Drowsy, but in no distress.
[2022-10-14] VITALS (15 sets, daily range): BP systolic 121–162; BP diastolic 69–95; PULSE 60–105; RESP 16–20; TEMP 97.4–98.9; O2SAT 90–95
--- NOTE | 2022-10-14 | NUR ---
PT VSS, PAIN MINIMAL, ADVISED TO SPLINT WHEN COUGHING, REPORT CALLED TO ROSA RN-ALL QUESTIONS ANSWERED, PT TAKEN BACK TO ROOM 4010A BED LOW AND LOCKED, PRIMARY RN IN ROOM TO RECEIVE PT
[2022-10-14] MEDS: normal saline 1000ml 1,000 ML IV SCH ×2 (00:20→23:29)
[2022-10-14] MEDS: morphine 2 MG/ML inj. syringe IV PRN (02:15)
[2022-10-14] MEDS: HYDROcodone/acetaminophen 10/325mg tab PO PRN ×3 (03:08→18:10)
--- NOTE | 2022-10-14 04:24 | NUR ---
Called MD regarding patient c/o 9/10 pain after 2mg ms and norco 10. New orders for 1) 0.5 mg IV dilaudid q4hr prn pain and 2) put pt on a tele monitor.
[2022-10-14] MEDS: HYDROmorphone inj. 0.5 MG/0.5 ML DISP.SYRIN IV PRN ×2 (04:39→21:19)
--- NOTE | 2022-10-14 06:25 | NUR ---
Patient in room ORTHO 4010. I have received report from Temitope CHEN and had the opportunity to ask questions and assume patient care.
--- NOTE | 2022-10-14 06:30 | NUR ---
Problems reprioritized. Patient report given, questions answered & plan of care reviewed with Catherine COLEMAN.
[2022-10-14 07:09] LABS: BASOPHILS % (AUTO) 0 % (0-1); EOSINOPHILS % (AUTO) 0 % (0-6); HEMATOCRIT 46.2 % (42.0-52.0); HEMOGLOBIN 15.5 g/dl (14.0-17.9); LYMPHOCYTES # (AUTO) 0.6 X10'3 (1.1-4.8); LYMPHOCYTES % (AUTO) 4.7 % (21-51); MEAN CORPUSCULAR HEMOGLOBIN 28.9 PG (27.0-31.0); MEAN CORPUSCULAR HGB CONC 33.5 g/dL (33.0-36.5); MEAN CORPUSCULAR VOLUME 86.2 FL (78-98); MEAN PLATELET VOLUME 9.6 FL (7.4-10.4); MONOCYTES # (AUTO) 0.8 X10'3 (0-0.9); MONOCYTES % (AUTO) 6.3 % (2-12); NEUTROPHILS # (AUTO) 11.3 X10'3 (1.8-7.7); PLATELET COUNT 171 X10'3 (140-440); RED BLOOD COUNT 5.36 X10'6 (4.70-6.10); RED CELL DISTRIBUTION WIDTH 14.3 % (11.5-14.5); WHITE BLOOD COUNT 12.7 X10'3 (4.5-11.0)
[2022-10-14] MEDS: heparin, porcine 5000 units/ml vial SQ SCH ×2 (07:36→21:38)
--- NOTE | 2022-10-14 07:40 | NUR ---
Patient refused heparin.
[2022-10-14 07:42] LABS: ALBUMIN 3.3 G/DL (3.4-5.0); CHLORIDE 105 MMOL/L (99-107); GLUCOSE 218 MG/DL (70-104); POTASSIUM 3.8 MMOL/L (3.5-5.1); SODIUM 142 MMOL/L (135-145); eGFR 71 ML/MIN
[2022-10-14] MEDS: levoFLOXACIN-Levaquin 500mg/D5 100 ML IV SCH (09:00)
[2022-10-14 09:29] LABS: ALANINE AMINOTRANSFERASE 28 U/L (12-78); ALKALINE PHOSPHATASE 52 IU/L (46-116); ANION GAP 14 (8-16); ASPARTATE AMINO TRANSFERASE 27 U/L (10-37); BILIRUBIN,TOTAL 0.8 MG/DL (0.1-1.0); BLOOD UREA NITROGEN 20 MG/DL (7-18); CALCIUM 8.8 MG/DL (8.5-10.1); TOTAL PROTEIN 6.5 G/DL (6.4-8.2)
[2022-10-14] MEDS: insulin Lispro (HumaLOG) vial - multi-dose SQ SCH ×3 (09:39→19:23)
--- NOTE | 2022-10-14 10:46 | NUR ---
Diabetes consult: Pt/SO seen at bedside during time of visit. Provided written/verbal diabetes nutrition education with RD contact information. Pt reports seeing his physician every 3 months for diabetes management, tries most of the time to take his medication as prescribed, and tries to check his BG but sometimes forgets. Encouraged the pt/SO to reach out for any nutrition questions or concerns. Addendum: 10/14/22 at [address] Amended: Links added.
--- NOTE | 2022-10-14 14:38 | NUR ---
FUNDRAISER documentation: I have reviewed and agree with all interventions, assessments performed and documented by Catherine Campa LVN.
[2022-10-14] MEDS: metroNIDAZOLE-Flagyl 500mg/NS 100 ML IV SCH (16:12)
--- NOTE | 2022-10-14 18:42 | NUR ---
Problems reprioritized. Patient report given, questions answered & plan of care reviewed with Meka CHEN.
[2022-10-14] MEDS: insulin glargine (Lantus) pen - multi-dose SQ SCH (21:46)
[2022-10-15] MEDS: metroNIDAZOLE-Flagyl 500mg/NS 100 ML IV SCH ×3 (00:29→16:51)
[2022-10-15] MEDS: normal saline 1000ml 1,000 ML IV SCH ×2 (02:57→17:15)
[2022-10-15] MEDS: HYDROcodone/acetaminophen 10/325mg tab PO PRN ×2 (05:53→19:08)
[2022-10-15 06:00] VITALS: BP 173/95; PULSE 77; RESP 18; TEMP 97.6; O2SAT 93
--- NOTE | 2022-10-15 06:20 | NUR ---
Patient in room ORTHO 4010. I have received report from Meka and had the opportunity to ask questions and assume patient care.
--- NOTE | 2022-10-15 06:39 | NUR ---
Problems reprioritized. Patient report given, questions answered & plan of care reviewed with ОЛЕГ CHEN.
[2022-10-15 06:44] LABS: BASOPHILS % (AUTO) 0.4 % (0-1); EOSINOPHILS # (AUTO) 0.1 X10'3 (0-0.9); EOSINOPHILS % (AUTO) 0.8 % (0-6); HEMATOCRIT 43.8 % (42.0-52.0); HEMOGLOBIN 14.9 g/dl (14.0-17.9); LYMPHOCYTES # (AUTO) 1.3 X10'3 (1.1-4.8); LYMPHOCYTES % (AUTO) 12.1 % (21-51); MEAN CORPUSCULAR HEMOGLOBIN 29.4 PG (27.0-31.0); MEAN CORPUSCULAR VOLUME 86.4 FL (78-98); MEAN PLATELET VOLUME 9.2 FL (7.4-10.4); MONOCYTES # (AUTO) 0.9 X10'3 (0-0.9); MONOCYTES % (AUTO) 8.2 % (2-12); NEUTROPHILS # (AUTO) 8.5 X10'3 (1.8-7.7); NEUTROPHILS % (AUTO) 78.5 % (42-75); PLATELET COUNT 172 X10'3 (140-440); RED BLOOD COUNT 5.07 X10'6 (4.70-6.10); RED CELL DISTRIBUTION WIDTH 14.5 % (11.5-14.5); WHITE BLOOD COUNT 10.9 X10'3 (4.5-11.0)
[2022-10-15 07:05] LABS: ALANINE AMINOTRANSFERASE 27 U/L (12-78); ALBUMIN 3.2 G/DL (3.4-5.0); ALBUMIN/GLOBULIN RATIO 0.9 (1.1-1.5); ALKALINE PHOSPHATASE 47 IU/L (46-116); ANION GAP 10 (8-16); ASPARTATE AMINO TRANSFERASE 27 U/L (10-37); BILIRUBIN,TOTAL 0.7 MG/DL (0.1-1.0); BLOOD UREA NITROGEN 18 MG/DL (7-18); BUN/CREATININE RATIO 19.1 (10.0-20.0); CALCIUM 9.1 MG/DL (8.5-10.1); CHLORIDE 104 MMOL/L (99-107); CREATININE 0.94 MG/DL (0.60-1.10); GLUCOSE 176 MG/DL (70-104); POTASSIUM 3.5 MMOL/L (3.5-5.1); SODIUM 140 MMOL/L (135-145); TOTAL CARBON DIOXIDE 25.8 MMOL/L (24-32); TOTAL PROTEIN 6.7 G/DL (6.4-8.2); eGFR 77 ML/MIN
[2022-10-15 08:02] VITALS: RESP 18; O2SAT 93
[2022-10-15] MEDS: heparin, porcine 5000 units/ml vial SQ SCH ×2 (08:02→19:07)
[2022-10-15] MEDS: HYDROmorphone inj. 0.5 MG/0.5 ML DISP.SYRIN IV PRN (08:08)
[2022-10-15] MEDS: insulin Lispro (HumaLOG) vial - multi-dose SQ SCH ×3 (09:24→19:02)
[2022-10-15 10:00] VITALS: BP 158/91; PULSE 89; RESP 18; TEMP 97.4; O2SAT 95
[2022-10-15] MEDS: levoFLOXACIN-Levaquin 500mg/D5 100 ML IV SCH (10:07)
[2022-10-15 18:00] VITALS: BP 187/87; PULSE 74; RESP 20; TEMP 97.6; O2SAT 96
--- NOTE | 2022-10-15 18:33 | NUR ---
Problems reprioritized. Patient report given, questions answered & plan of care reviewed with
[2022-10-15 20:00] VITALS: RESP 18; O2SAT 94
[2022-10-15] MEDS: insulin glargine (Lantus) pen - multi-dose SQ SCH (21:47)
[2022-10-15 22:00] VITALS: BP 147/81; PULSE 89; RESP 18; TEMP 97.9; O2SAT 97
[2022-10-16] MEDS: metroNIDAZOLE-Flagyl 500mg/NS 100 ML IV SCH ×3 (00:14→16:00)
[2022-10-16] MEDS: HYDROcodone/acetaminophen 10/325mg tab PO PRN (04:20)
[2022-10-16 06:00] VITALS: BP 166/88; PULSE 55; RESP 16; TEMP 98; O2SAT 96
--- NOTE | 2022-10-16 06:41 | NUR ---
Problems reprioritized. Patient report given, questions answered & plan of care reviewed with JOSEPHINE CHEN.
--- NOTE | 2022-10-16 07:23 | NUR ---
Patient in room ORTHO 4010A. I have received report from APRIL ONEILL and had the opportunity to ask questions and assume patient care.
[2022-10-16] MEDS: normal saline 1000ml 1,000 ML IV SCH (07:33)
[2022-10-16 07:47] LABS: BASOPHILS % (AUTO) 0.4 % (0-1); EOSINOPHILS # (AUTO) 0.2 X10'3 (0-0.9); EOSINOPHILS % (AUTO) 1.8 % (0-6); HEMATOCRIT 45.6 % (42.0-52.0); HEMOGLOBIN 15.6 g/dl (14.0-17.9); MEAN CORPUSCULAR HEMOGLOBIN 29.7 PG (27.0-31.0); MEAN CORPUSCULAR HGB CONC 34.3 g/dL (33.0-36.5); MEAN CORPUSCULAR VOLUME 86.6 FL (78-98); MEAN PLATELET VOLUME 8.8 FL (7.4-10.4); MONOCYTES # (AUTO) 0.8 X10'3 (0-0.9); MONOCYTES % (AUTO) 8.6 % (2-12); NEUTROPHILS # (AUTO) 7.6 X10'3 (1.8-7.7); NEUTROPHILS % (AUTO) 79.2 % (42-75); PLATELET COUNT 184 X10'3 (140-440); RED BLOOD COUNT 5.26 X10'6 (4.70-6.10); RED CELL DISTRIBUTION WIDTH 14.4 % (11.5-14.5); WHITE BLOOD COUNT 9.6 X10'3 (4.5-11.0)
[2022-10-16 07:58] LABS: ALANINE AMINOTRANSFERASE 27 U/L (12-78); ALBUMIN 3.2 G/DL (3.4-5.0); ALBUMIN/GLOBULIN RATIO 0.9 (1.1-1.5); ALKALINE PHOSPHATASE 55 IU/L (46-116); ANION GAP 11 (8-16); ASPARTATE AMINO TRANSFERASE 27 U/L (10-37); BILIRUBIN,TOTAL 0.7 MG/DL (0.1-1.0); BLOOD UREA NITROGEN 12 MG/DL (7-18); BUN/CREATININE RATIO 13.6 (10.0-20.0); CALCIUM 9.2 MG/DL (8.5-10.1); CHLORIDE 103 MMOL/L (99-107); CREATININE 0.88 MG/DL (0.60-1.10); GLUCOSE 148 MG/DL (70-104); POTASSIUM 3.5 MMOL/L (3.5-5.1); SODIUM 139 MMOL/L (135-145); TOTAL CARBON DIOXIDE 25.5 MMOL/L (24-32); TOTAL PROTEIN 6.6 G/DL (6.4-8.2); eGFR 83 ML/MIN
[2022-10-16] MEDS: levoFLOXACIN-Levaquin 500mg/D5 100 ML IV SCH (08:00)
[2022-10-16] MEDS: heparin, porcine 5000 units/ml vial SQ SCH ×2 (08:59→21:40)
[2022-10-16] MEDS: insulin Lispro (HumaLOG) vial - multi-dose SQ SCH ×2 (09:07→18:31)
[2022-10-16 10:00] VITALS: BP 165/99; PULSE 75; RESP 14; TEMP 97.8; O2SAT 97
[2022-10-16 18:00] VITALS: BP 160/98; PULSE 82; RESP 18; TEMP 97.6; O2SAT 94
[2022-10-16] MEDS: digoxin 125mcg (0.125mg) tablet PO SCH (18:22)
[2022-10-16] MEDS: aspirin 81mg tab.chew PO SCH (18:23)
[2022-10-16] MEDS: pantoprazole 40mg Tablet.DR PO SCH (18:23)
--- NOTE | 2022-10-16 18:44 | NUR ---
Problems reprioritized. Patient report given, questions answered & plan of care reviewed with APRIL ONEILL.
[2022-10-16 19:13] VITALS: RESP 18; O2SAT 94
--- NOTE | 2022-10-16 19:17 | NUR ---
Patient in room ORTHO 4010. I have received report from JOSEPHINE CHEN and had the opportunity to ask questions and assume patient care.
--- NOTE | 2022-10-16 19:18 | NUR ---
PATIENT IS NEEDING A NEW PIV, EARLIER SEVERAL ATTEMPTS WERE MADE BUT UNSUCCESSFUL. PATIENT JUST AMBULATED IN HALLWAY WITH FWW AND AIDE, BACK IN BED NOW AND WILL RESTART IV.
[2022-10-16] MEDS: insulin glargine (Lantus) pen - multi-dose SQ SCH (21:39)
[2022-10-16] MEDS: metoprolol succinate 25mg (24-HOUR) SR. Tablet PO SCH (21:40)
[2022-10-16 22:00] VITALS: BP 178/101; PULSE 74; RESP 16; TEMP 98.2; O2SAT 95
[2022-10-17] MEDS: metroNIDAZOLE-Flagyl 500mg/NS 100 ML IV SCH ×2 (00:07→10:46)
[2022-10-17 06:00] VITALS: BP 153/90; PULSE 70; RESP 16; TEMP 97.4; O2SAT 99
[2022-10-17 06:09] LABS: BASOPHILS % (AUTO) 0.5 % (0-1); EOSINOPHILS # (AUTO) 0.4 X10'3 (0-0.9); EOSINOPHILS % (AUTO) 4.5 % (0-6); HEMATOCRIT 44.1 % (42.0-52.0); HEMOGLOBIN 15.3 g/dl (14.0-17.9); LYMPHOCYTES % (AUTO) 12.3 % (21-51); MEAN CORPUSCULAR HEMOGLOBIN 29.4 PG (27.0-31.0); MEAN CORPUSCULAR HGB CONC 34.7 g/dL (33.0-36.5); MEAN CORPUSCULAR VOLUME 84.8 FL (78-98); MEAN PLATELET VOLUME 9.1 FL (7.4-10.4); MONOCYTES # (AUTO) 0.8 X10'3 (0-0.9); MONOCYTES % (AUTO) 9.2 % (2-12); NEUTROPHILS # (AUTO) 6.3 X10'3 (1.8-7.7); NEUTROPHILS % (AUTO) 73.5 % (42-75); PLATELET COUNT 199 X10'3 (140-440); RED CELL DISTRIBUTION WIDTH 14.5 % (11.5-14.5); WHITE BLOOD COUNT 8.5 X10'3 (4.5-11.0)
--- NOTE | 2022-10-17 06:12 | NUR ---
2000 NEW PIV PLACED, 20G LFA WITHOUT DIFFICULTY. PATIENT TOLERATING CLEAR LIQUID DIET, BUT STATES NO FLATUS OR BM YET.
--- NOTE | 2022-10-17 06:13 | NUR ---
Problems reprioritized. Patient report given, questions answered & plan of care reviewed with JOSEPHINE CHEN.
[2022-10-17 06:23] LABS: ALANINE AMINOTRANSFERASE 30 U/L (12-78); ALBUMIN 3.1 G/DL (3.4-5.0); ALBUMIN/GLOBULIN RATIO 0.9 (1.1-1.5); ALKALINE PHOSPHATASE 55 IU/L (46-116); ANION GAP 12 (8-16); ASPARTATE AMINO TRANSFERASE 34 U/L (10-37); BILIRUBIN,TOTAL 0.9 MG/DL (0.1-1.0); BLOOD UREA NITROGEN 9 MG/DL (7-18); BUN/CREATININE RATIO 10.7 (10.0-20.0); CALCIUM 9.5 MG/DL (8.5-10.1); CHLORIDE 105 MMOL/L (99-107); CREATININE 0.84 MG/DL (0.60-1.10); GLUCOSE 168 MG/DL (70-104); POTASSIUM 3.4 MMOL/L (3.5-5.1); SODIUM 138 MMOL/L (135-145); TOTAL CARBON DIOXIDE 21.2 MMOL/L (24-32); TOTAL PROTEIN 6.5 G/DL (6.4-8.2); eGFR 87 ML/MIN
[2022-10-17] MEDS: normal saline 1000ml 1,000 ML IV SCH (06:43)
--- NOTE | 2022-10-17 06:53 | NUR ---
Patient in room ORTHO 4010A. I have received report from APRIL ONEILL and had the opportunity to ask questions and assume patient care.
[2022-10-17] MEDS ORDERED: fenofibrate 145mg tablet PO SCH (08:00)
[2022-10-17] MEDS: metoprolol succinate 25mg (24-HOUR) SR. Tablet PO SCH (09:06)
[2022-10-17] MEDS: pantoprazole 40mg Tablet.DR PO SCH (09:07)
[2022-10-17] MEDS: aspirin 81mg tab.chew PO SCH (09:07)
[2022-10-17] MEDS: levoFLOXACIN-Levaquin 500mg/D5 100 ML IV SCH (09:08)
[2022-10-17] MEDS: heparin, porcine 5000 units/ml vial SQ SCH (09:08)
[2022-10-17] MEDS: digoxin 125mcg (0.125mg) tablet PO SCH (09:08)
[2022-10-17] MEDS: insulin Lispro (HumaLOG) vial - multi-dose SQ SCH (09:21)
[2022-10-17 10:00] VITALS: BP 168/92; PULSE 85; RESP 16; TEMP 97.6; O2SAT 97
--- NOTE | 2022-10-17 11:43 | NUR ---
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 Pt advanced to clear liquids 10/14 PO 100% past 3 days though has had NG to suction until 8/5 AM per EMR. No meet nutrition needs given prolonged NPO vs clear liquids period. LBM 10/12 passing gas yesterday per surgeon note. RD unable to reach RN but left message for RN w/ tech regarding bowel regimen if surgeon agreeable since pt has received multiple opiates this LOS. Will monitor for diet advancement and further nutrition intervention needs this admit. Rec: 1. advance diet as medically indicated to heart healthy/carb controlled post-op; no gluten per allergy report 2. IF diet advances to at least full liquids consider Ensure Enlive TIDWM to assist w/ nutrition intake pending PO hx w/ diet advancement 3. IF to remain on clear liquids without diet advancement/GO function return at least 7 days consider TPN for nutrition needs 4. consider bowel regimen per surgeon discretion 5. scaled wt this admit; subsequent weekly wt Addendum: 10/17/22 at [address] Amended: Links added.
--- NOTE | 2022-10-17 19:02 | NUR ---
PATIENT STABLE AND APPROPRIATE FOR DISCHARGE, IV REMOVED, NEW MEDS E-SCRIPTED TO PREFERRED PHARMACY, EDUCATION GIVEN, ALL BELONGINGS SENT WITH PATIENT, PATIENT TAKEN TO LOBBY BY WHEELCHAIR TO AN AWAITING CAR WHERE WILL TAKE PATIENT HOME
== END 2022-10-17 14:02 | disposition home or self-care (01) | DRG 853 ==
LOC: ER 11:52 → ED HOLD 17:48 → ORTHO 4S 10-13 10:49
PROVIDERS: ADMIT Internal Medicine; ATTEND Internal Medicine
PROC: 0D9670Z Drainage of Stomach with Drainage Device, Via Natural or Artificial Opening (ICD-10-PCS; 2022-10-12)
PROC: 0DS80ZZ Reposition Small Intestine, Open Approach (ICD-10-PCS; principal; 2022-10-13 21:49)
DX: A41.9 Sepsis, unspecified organism (principal); K56.2 Volvulus; I48.20 Chronic atrial fibrillation, unspecified; K56.51 Intestinal adhesions [bands], with partial obstruction; E11.9 Type 2 diabetes mellitus without complications; I11.0 Hypertensive heart disease with heart failure; I50.9 Heart failure, unspecified; M10.9 Gout, unspecified; E78.5 Hyperlipidemia, unspecified; I25.9 Chronic ischemic heart disease, unspecified; I35.0 Nonrheumatic aortic (valve) stenosis; I25.10 Atherosclerotic heart disease of native coronary artery without angina pectoris; K57.90 Diverticulosis of intestine, part unspecified, without perforation or abscess without bleeding; K21.9 Gastro-esophageal reflux disease without esophagitis; Z88.5 Allergy status to narcotic agent; Z88.8 Allergy status to other drugs, medicaments and biological substances; Z79.899 Other long term (current) drug therapy; Z79.82 Long term (current) use of aspirin; Z79.4 Long term (current) use of insulin; Z80.0 Family history of malignant neoplasm of digestive organs; Z95.5 Presence of coronary angioplasty implant and graft; Z82.49 Family history of ischemic heart disease and other diseases of the circulatory system
CPT/HCPCS: 36415; 74176; 80053; 80162; 81001; 82948; 83036; 83605; 83690; 85025; 85651; 86140; 86885; 86900; 86901; 87040; 87081; 87088; 93005; 97116; 97161; 97530; 99285; A4314; A4618; A6449; A7000; C1758; G0378; J0694; J0696; J1100; J1170; J1644; J1815; J1956; J2175; J2250; J2270; J2405; J2704; J2710; J2795; J3010; J3490; J7030; J7120

== ENCOUNTER 2024-03-01 06:55 | Day surgery (SDC) | payer MEDICARE, BC ==
[~2024-03-01] VITALS: Ht 172.7 cm; Wt 86.5 kg
[2024-03-01] VITALS (14 sets, daily range): BP systolic 114–176; BP diastolic 62–100; PULSE 60–74; RESP 15–25; TEMP 97.6; O2SAT 93–96
[~2024-03-01 06:55] MED LIST changes: +AZEL137S4 BOTHNARES; +FENO160T PO; -FENO160T13 PO; -OMEG-5 PO; -PANT-47 PO; +PANT40TA54 PO; -SENN-137
[2024-03-01] MEDS ORDERED: diphenhydrAMINE 25mg capsule PO PRN (07:20)
[2024-03-01] MEDS ORDERED: LOSA100T58 PO (07:37)
[2024-03-01] MEDS ORDERED: BETA PROSTATE (07:37)
[2024-03-01] MEDS ORDERED: EMPA25TA PO (07:37)
[2024-03-01] MEDS ORDERED: move free (07:37)
[2024-03-01 07:47] LABS: BASOPHILS # (AUTO) 0.1 X10'3 (0-0.2); BASOPHILS % (AUTO) 1.1 % (0-1); EOSINOPHILS # (AUTO) 0.2 X10'3 (0-0.9); EOSINOPHILS % (AUTO) 2.6 % (0-6); HEMATOCRIT 48.7 % (42.0-52.0); HEMOGLOBIN 16.8 g/dl (14.0-17.9); MEAN CORPUSCULAR HEMOGLOBIN 29.5 PG (27.0-31.0); MEAN CORPUSCULAR HGB CONC 34.4 g/dL (33.0-36.5); MEAN CORPUSCULAR VOLUME 85.9 FL (78-98); MEAN PLATELET VOLUME 9.1 FL (7.4-10.4); MONOCYTES # (AUTO) 0.6 X10'3 (0-0.9); MONOCYTES % (AUTO) 7.8 % (2-12); NEUTROPHILS # (AUTO) 5.5 X10'3 (1.8-7.7); NEUTROPHILS % (AUTO) 75.5 % (42-75); PLATELET COUNT 178 X10'3 (140-440); RED BLOOD COUNT 5.67 X10'6 (4.70-6.10); WHITE BLOOD COUNT 7.3 X10'3 (4.5-11.0)
[2024-03-01 07:56] LABS: INR 1.1 INR; PROTHROMBIN TIME 11.4 SECONDS (9.0-12.0)
[2024-03-01 08:00] LABS: ALBUMIN 4.1 G/DL (3.4-5.0); ANION GAP 10 (8-16); BLOOD UREA NITROGEN 19 MG/DL (7-18); BUN/CREATININE RATIO 13.1 (10.0-20.0); CALCIUM 9.9 MG/DL (8.5-10.1); CHLORIDE 108 MMOL/L (99-107); CREATININE 1.45 MG/DL (0.60-1.10); GLUCOSE 139 MG/DL (70-104); MAGNESIUM 1.8 MG/DL (1.5-2.4); SODIUM 143 MMOL/L (135-145); TOTAL CARBON DIOXIDE 25.2 MMOL/L (24-32); eCRCL 37 ML/MIN; eGFR 46 ML/MIN
[2024-03-01] MEDS: normal saline 1,000 ML IV SCH (08:21)
[2024-03-01] MEDS: sodium bicarbonate 1meq/ml syr 150 ML in dextrose 5%-water 1,000 ML IV ONE (08:21)
[2024-03-01] MEDS ORDERED: verapamil 2.5 mg/ml inj IV ONE (08:44)
[2024-03-01] MEDS ORDERED: LIDOcaine 1% (10mg/ml) 2ml vial ONE (08:44)
[2024-03-01] MEDS ORDERED: midazolam 1 mg/ML 2ml injection ONE ×2 (08:44→10:01)
[2024-03-01] MEDS ORDERED: iohexol 350 MG/ML 50ML vial IV ONE ×2 (08:45→10:12)
[2024-03-01] MEDS ORDERED: iohexol 350MG/ML 100ml bottle IV ONE (08:45)
[2024-03-01] MEDS ORDERED: fentaNYL/PF 50MCG/1 ML 2ML syringe ONE (08:45)
[2024-03-01] MEDS ORDERED: nitroGLYCERIN 500mcg/5mL D5W 5 ML IV ONE (08:45)
[2024-03-01] MEDS ORDERED: heparin 1,000unit/ml 10ml vial 10 ML ONE (08:45)
[2024-03-01] MEDS ORDERED: LIDOcaine 1% 30ml preserv. free vial ONE (09:53)
[2024-03-01] MEDS ORDERED: heparin 1,000 UNITS/NS 500ml 500 ML ONE (10:16)
[2024-03-01] MEDS ORDERED: ondansetron/PF 4mg/2ml inj IV PRN (11:55)
[2024-03-01] MEDS ORDERED: HYDROcodone/acetaminophen 5mg/325mg tablet PO PRN (11:55)
[2024-03-01] MEDS ORDERED: proCHLORperazine 10 MG/2 ml inj IV PRN (11:55)
[2024-03-01] MEDS ORDERED: HYDROcodone/acetaminophen 10/325mg tab PO PRN (11:55)
== END 2024-03-01 14:28 | disposition home or self-care (01) ==
LOC: SSTAY O 06:55
PROVIDERS: ATTEND Internal Medicine Cardiovascular Disease
DX: R94.39 Abnormal result of other cardiovascular function study (principal); I25.118 Atherosclerotic heart disease of native coronary artery with other forms of angina pectoris; I35.0 Nonrheumatic aortic (valve) stenosis; I49.5 Sick sinus syndrome; I10 Essential (primary) hypertension; E78.5 Hyperlipidemia, unspecified; E11.9 Type 2 diabetes mellitus without complications; K21.9 Gastro-esophageal reflux disease without esophagitis; Z88.6 Allergy status to analgesic agent; Z88.8 Allergy status to other drugs, medicaments and biological substances; Z98.890 Other specified postprocedural states; M10.9 Gout, unspecified
CPT/HCPCS: 36415; 80048; 82948; 83735; 85025; 85610; 93005; 93460; 93571; 99152; 99153; A6258; A6402; C1751; C1760; C1769; C1887; C1894; J1644; J2003; J2250; J3010; J3490; J7030; J7070; Q9967; Z7610; A6449

== ENCOUNTER 2024-04-10 09:25 | Outpatient (CLI) | payer MEDICARE, BC ==
[~2024-04-10 09:25] MED LIST changes: -AZEL137S4 BOTHNARES; +BETA PROSTATE; +EMPA25TA PO; +IODIXANOL 320 MG/ML INFUS..BTL 100ML IV ONE; -LAN0.125T PO; -LANTUS SQ; +LOSA100T58 PO; -SEMA0.25 SQ; +move free
[2024-04-10 10:39] LABS: BASOPHILS % (AUTO) 0.6 % (0-1); EOSINOPHILS # (AUTO) 0.1 X10'3 (0-0.9); EOSINOPHILS % (AUTO) 1.9 % (0-6); HEMATOCRIT 49.8 % (42.0-52.0); HEMOGLOBIN 16.8 g/dl (14.0-17.9); LYMPHOCYTES # (AUTO) 0.9 X10'3 (1.1-4.8); LYMPHOCYTES % (AUTO) 11.8 % (21-51); MEAN CORPUSCULAR HEMOGLOBIN 29.3 PG (27.0-31.0); MEAN CORPUSCULAR HGB CONC 33.7 g/dL (33.0-36.5); MEAN CORPUSCULAR VOLUME 87.1 FL (78-98); MEAN PLATELET VOLUME 9.5 FL (7.4-10.4); MONOCYTES # (AUTO) 0.5 X10'3 (0-0.9); MONOCYTES % (AUTO) 6.5 % (2-12); NEUTROPHILS # (AUTO) 5.9 X10'3 (1.8-7.7); NEUTROPHILS % (AUTO) 79.2 % (42-75); PLATELET COUNT 165 X10'3 (140-440); RED BLOOD COUNT 5.71 X10'6 (4.70-6.10); RED CELL DISTRIBUTION WIDTH 14.3 % (11.5-14.5); WHITE BLOOD COUNT 7.5 X10'3 (4.5-11.0)
[2024-04-10 10:56] LABS: APTT 27 SECONDS (22-32); INR 1.2 INR; PROTHROMBIN TIME 12.2 SECONDS (9.0-12.0)
[2024-04-10 11:05] LABS: ALANINE AMINOTRANSFERASE 30 U/L (12-78); ALBUMIN/GLOBULIN RATIO 1.2 (1.1-1.5); ALKALINE PHOSPHATASE 52 IU/L (46-116); ANION GAP 8 (8-16); ASPARTATE AMINO TRANSFERASE 20 U/L (10-37); BILIRUBIN,TOTAL 0.5 MG/DL (0.1-1.0); BLOOD UREA NITROGEN 23 MG/DL (7-18); BUN/CREATININE RATIO 22.3 (10.0-20.0); CALCIUM 9.5 MG/DL (8.5-10.1); CHLORIDE 110 MMOL/L (99-107); CREATININE 1.03 MG/DL (0.60-1.10); GLUCOSE 174 MG/DL (70-104); PRO BRAIN NATRIURETIC PEPTIDE 2903 PG/ML (0-450); SODIUM 144 MMOL/L (135-145); TOTAL CARBON DIOXIDE 26.4 MMOL/L (24-32); TOTAL PROTEIN 7.3 G/DL (6.4-8.2); eGFR 69 ML/MIN
== END 2024-04-10 23:59 | disposition home or self-care (01) ==
LOC: RAD 09:25
PROVIDERS: ATTEND Internal Medicine Cardiovascular Disease
DX: I71.21 Aneurysm of the ascending aorta, without rupture (principal); I35.0 Nonrheumatic aortic (valve) stenosis; I51.7 Cardiomegaly; K57.30 Diverticulosis of large intestine without perforation or abscess without bleeding; K42.9 Umbilical hernia without obstruction or gangrene; N28.1 Cyst of kidney, acquired; I65.23 Occlusion and stenosis of bilateral carotid arteries; R06.02 Shortness of breath; M47.819 Spondylosis without myelopathy or radiculopathy, site unspecified
CPT/HCPCS: 36415; 71046; 71275; 74174; 75572; 80053; 83880; 85025; 85610; 85730; 93880; Q9967

== ENCOUNTER 2024-04-25 11:19 | Outpatient (CLI) | payer MEDICARE, BC ==
[~2024-04-25] VITALS: Ht 172.7 cm; Wt 88.3 kg
[~2024-04-25 11:19] MED LIST changes: -IODIXANOL 320 MG/ML INFUS..BTL 100ML IV ONE
[2024-04-25 15:16] VITALS: BP 156/81; PULSE 74; RESP 16; TEMP 96.8; O2SAT 96
[2024-06-21] MEDS ORDERED: CLON0.2T PO (10:04)
[2024-06-21] MEDS ORDERED: LANTUS SUBCUT (10:04)
== END 2024-04-25 23:59 | disposition home or self-care (01) ==
LOC: TAVR 11:19
PROVIDERS: ATTEND Internal Medicine Cardiovascular Disease
DX: I08.0 Rheumatic disorders of both mitral and aortic valves (principal); R06.02 Shortness of breath; I12.9 Hypertensive chronic kidney disease with stage 1 through stage 4 chronic kidney disease, or unspecified chronic kidney disease; E11.22 Type 2 diabetes mellitus with diabetic chronic kidney disease; E78.5 Hyperlipidemia, unspecified; I25.10 Atherosclerotic heart disease of native coronary artery without angina pectoris; I42.9 Cardiomyopathy, unspecified; I48.91 Unspecified atrial fibrillation; I70.0 Atherosclerosis of aorta; N18.30 Chronic kidney disease, stage 3 unspecified; Z79.01 Long term (current) use of anticoagulants; Z79.82 Long term (current) use of aspirin; Z79.84 Long term (current) use of oral hypoglycemic drugs; Z79.899 Other long term (current) drug therapy; Z88.5 Allergy status to narcotic agent; Z95.0 Presence of cardiac pacemaker; Z95.5 Presence of coronary angioplasty implant and graft
CPT/HCPCS: 93308

== ENCOUNTER 2024-06-27 07:29 | Inpatient (IN) | payer MEDICARE, BC ==
[2024-06-21 11:08] LABS: BILIRUBIN,URINE NEGATIVE (Neg); CLARITY,URINE CLEAR (Clear); COLOR,URINE YELLOW (Yellow); GLUCOSE, URINE >=1000 mg/dl (Neg); KETONES,URINE NEGATIVE (Neg); LEUKOCYTE ESTERASE ,URINE NEGATIVE (Neg); NITRITES, URINE NEGATIVE (Neg); OCCULT BLOOD,URINE NEGATIVE (Neg); PROTEIN,URINE NEGATIVE (Neg); UROBILINOGEN,URINE 0.2 E.U/dL (0.2-1.0)
[2024-06-21 11:15] LABS: UA COLLECTION TYPE VOIDED
[2024-06-21 11:16] LABS: BACTERIA,URINE NONE SEEN /HPF (Neg); MUCUS STRANDS NONE SEEN /LPF (Neg); RBC,URINE 0-2 /HPF (0-2); SQUAMOUS EPITHELIAL CELL,UR FEW /LPF (FEW); WBC,URINE 0-4 /HPF (0-4)
[2024-06-21 11:36] LABS: BASOPHILS # (AUTO) 0.1 X10'3 (0-0.2); BASOPHILS % (AUTO) 0.9 % (0-1); EOSINOPHILS # (AUTO) 0.1 X10'3 (0-0.9); EOSINOPHILS % (AUTO) 1.7 % (0-6); LYMPHOCYTES # (AUTO) 0.8 X10'3 (1.1-4.8); LYMPHOCYTES % (AUTO) 13.7 % (21-51); MEAN CORPUSCULAR HEMOGLOBIN 28.7 PG (27.0-31.0); MEAN CORPUSCULAR HGB CONC 33.7 g/dL (33.0-36.5); MEAN CORPUSCULAR VOLUME 85.3 FL (78-98); MEAN PLATELET VOLUME 9.3 FL (7.4-10.4); MONOCYTES # (AUTO) 0.5 X10'3 (0-0.9); MONOCYTES % (AUTO) 7.8 % (2-12); NEUTROPHILS # (AUTO) 4.4 X10'3 (1.8-7.7); NEUTROPHILS % (AUTO) 75.9 % (42-75); PRE OP HEMATOCRIT 46.5 % (42.0-52.0); PRE OP HEMOGLOBIN 15.7 g/dL (14.0-17.9); PRE OP PLATELET COUNT 155 X10'3 (140-440); PRE OP WHITE BLOOD COUNT 5.8 10'3 (4.8-10.8); RED BLOOD COUNT 5.45 X10'6 (4.70-6.10); RED CELL DISTRIBUTION WIDTH 14.6 % (11.5-14.5)
[2024-06-21 11:37] LABS: HEMOGLOBIN A1C 6.9 % (4.5-6.2)
[2024-06-21 11:45] LABS: PRE OP INR 1.1 INR; PRE OP PROTIME 11.3 SECONDS (9.0-12.0)
[2024-06-21 11:55] LABS: ALBUMIN 3.9 G/DL (3.4-5.0); ALBUMIN/GLOBULIN RATIO 1.3 (1.1-1.5); ALKALINE PHOSPHATASE 58 IU/L (46-116); BLOOD UREA NITROGEN 22 MG/DL (7-18); BUN/CREATININE RATIO 18.8 (10.0-20.0); CALCIUM 9.2 MG/DL (8.5-10.1); CHLORIDE 112 MMOL/L (99-107); CREATININE 1.17 MG/DL (0.60-1.10); PRE OP ALT 32 U/L (30-65); PRE OP ANION GAP 7 (8-16); PRE OP AST 22 U/L (10-37); PRE OP BILIRUB, TOTAL 0.5 MG/DL (0.0-1.0); PRE OP GLUCOSE 179 MG/DL (70-104); PRE OP SODIUM 146 MMOL/L (135-145); PRO BRAIN NATRIURETIC PEPTIDE 4480 PG/ML (0-450); TOTAL CARBON DIOXIDE 26.6 MMOL/L (24-32); TOTAL PROTEIN 6.8 G/DL (6.4-8.2); eGFR 59 ML/MIN
[2024-06-27] VITALS (21 sets, daily range): BP systolic 110–181; BP diastolic 29–106; PULSE 60–89; RESP 15–25; TEMP 96.9–97.5; O2SAT 90–99
[~2024-06-27] VITALS: Ht 172.7 cm; Wt 82.2 kg
[2024-06-27] MEDS: aspirin 325mg tablet PO ONE (05:30)
[2024-06-27] MEDS: ceFAZolin 2gm in dextrose, iso 50 ML IV ONE (05:30)
[2024-06-27] MEDS: DOCUMENT DATE & TIME OF BETA-BLOCKER PO ONE (05:30)
[~2024-06-27 07:29] MED LIST changes: +CLON0.2T PO; +LANTUS SUBCUT; +ondansetron/PF 4mg/2ml inj IV PRN; +protamine sulfate 10mg/ml inj. ONE
[2024-06-27] MEDS: famotidine 20mg tablet PO ONE (08:24)
[2024-06-27] MEDS: ringers solution, lacted 1,000 ML IV SCH (08:24)
[2024-06-27] MEDS: VANCOMYCIN/H2O 1.5g/300mL PB 300 ML IV ONE (08:24)
[2024-06-27] MEDS ORDERED: midazolam 1 mg/ML 2ml injection ONE (09:43)
[2024-06-27] MEDS ORDERED: fentaNYL/PF 50MCG/1 ML 2ML syringe ONE (09:43)
[2024-06-27] MEDS ORDERED: heparin 1,000unit/ml 10ml vial 10 ML ONE (09:45)
[2024-06-27] MEDS ORDERED: iohexol 350MG/ML 100ml bottle IV ONE (09:48)
[2024-06-27] MEDS ORDERED: LIDOcaine 1% 30ml preserv. free vial ONE (09:48)
[2024-06-27] MEDS ORDERED: heparin 1,000 UNITS/NS 500ml 1,500 ML ONE (09:49)
[2024-06-27] MEDS ORDERED: propofol inj 20 ML IV ONE (11:09)
[2024-06-27] MEDS ORDERED: HYDROcodone/acetaminophen 5mg/325mg tablet PO PRN (11:30)
[2024-06-27] MEDS ORDERED: proCHLORperazine 10 MG/2 ml inj IV PRN (11:30)
[2024-06-27] MEDS ORDERED: potassium Cl 40MEQ/1/2NS 520ml 520 ML IV PRN (11:30)
[2024-06-27] MEDS ORDERED: diphenhydrAMINE 25mg capsule PO PRN (11:30)
[2024-06-27] MEDS ORDERED: potassium Cl 40MEQ/270ML bag 250 ML IV PRN (11:30)
[2024-06-27] MEDS ORDERED: potassium Cl 20mEq/100mL bag 100 ML IV PRN (11:30)
[2024-06-27] MEDS ORDERED: ondansetron/PF 4mg/2ml inj IV PRN (11:30)
[2024-06-27] MEDS ORDERED: glucagon, human recombinant 1mg kit SUBCUT PRN (11:30)
[2024-06-27] MEDS ORDERED: potassium Cl 20 mEq SR tablet PO PRN (11:30)
[2024-06-27] MEDS ORDERED: docusate sod 100mg capsule PO PRN (11:30)
[2024-06-27] MEDS ORDERED: potassium CL 10mEq/100ml bag 100 ML IV PRN (11:30)
[2024-06-27] MEDS ORDERED: pantoprazole 40mg Tablet.DR PO PRN (11:30)
[2024-06-27] MEDS ORDERED: DEXTROSE 15 GM of carb/4 tabs (each vial/BOTTLE has 4 tablets) PO PRN ×2 (11:30)
[2024-06-27] MEDS ORDERED: acetaminophen 325mg tablet PO PRN (11:30)
[2024-06-27] MEDS ORDERED: magnesium sulf-water 4G/100mL 100 ML IV PRN (11:30)
[2024-06-27] MEDS ORDERED: dextrose 50%-water 50ml dispensing syringe IV PRN ×2 (11:30)
[2024-06-27] MEDS ORDERED: magnesium sulf-water 2g/50mL 50 ML IV PRN (11:30)
[2024-06-27] MEDS: phenylephrine inj 50 MG in normal saline 250ml IV solN IV SCH (11:58)
[2024-06-27] MEDS: nitroPRUSSIDE (NIPRIDE) (200MCG/ML) 100ML Drip IV SCH (11:58)
[2024-06-27] MEDS: normal saline 1000ml 1,000 ML IV SCH (12:08)
[2024-06-27] MEDS: hydrALAZINE 20mg/ml inj. IV PRN (12:13)
[2024-06-27] MEDS: INSULIN LISPRO 100 UNIT/ML INSULN.PEN MULTI-DOSE SQ SCH ×2 (13:05)
[2024-06-27] MEDS: ALPRAZolam 0.25mg tablet PO PRN (15:00)
[2024-06-27] MEDS: sod chloride 0.9% 10ml flush syringe IV SCH (16:28)
[2024-06-27] MEDS: ceFAZolin 1GM/D5W- ADD-VANTAGE 50 ML IV SCH (16:33)
[2024-06-27] MEDS: labetalol 20mg/4ml (5mg/ml) syringe IV PRN (16:38)
[2024-06-27] MEDS ORDERED: VANCOMYCIN 1GM 200ML H20 (PEG) 200 ML IV SCH (20:00)
[2024-06-27] MEDS: vancomycin/NS 1 GM ADD-VANTAGE 250 ML IV SCH (20:45)
[2024-06-27] MEDS: cloNIDine 0.1 mg tablet PO SCH (20:45)
[2024-06-27] MEDS: metoprolol succinate 25mg (24-HOUR) SR. Tablet PO SCH (20:45)
[2024-06-28 02:00] VITALS: BP 145/70; PULSE 64; RESP 22; TEMP 97.6; O2SAT 96
[2024-06-28 06:00] VITALS: BP 153/115; PULSE 70; RESP 18; TEMP 97.8; O2SAT 97
[2024-06-28 06:56] LABS: BASOPHILS # (AUTO) 0.1 X10'3 (0-0.2); BASOPHILS % (AUTO) 0.7 % (0-1); EOSINOPHILS # (AUTO) 0.1 X10'3 (0-0.9); EOSINOPHILS % (AUTO) 0.9 % (0-6); HEMATOCRIT 45.6 % (42.0-52.0); HEMOGLOBIN 15.2 g/dl (14.0-17.9); LYMPHOCYTES # (AUTO) 0.8 X10'3 (1.1-4.8); LYMPHOCYTES % (AUTO) 8.9 % (21-51); MEAN CORPUSCULAR HEMOGLOBIN 28.4 PG (27.0-31.0); MEAN CORPUSCULAR HGB CONC 33.2 g/dL (33.0-36.5); MEAN CORPUSCULAR VOLUME 85.6 FL (78-98); MEAN PLATELET VOLUME 9.2 FL (7.4-10.4); MONOCYTES % (AUTO) 10.6 % (2-12); NEUTROPHILS # (AUTO) 7.2 X10'3 (1.8-7.7); NEUTROPHILS % (AUTO) 78.9 % (42-75); PLATELET COUNT 136 X10'3 (140-440); RED BLOOD COUNT 5.33 X10'6 (4.70-6.10); RED CELL DISTRIBUTION WIDTH 14.7 % (11.5-14.5); WHITE BLOOD COUNT 9.2 X10'3 (4.5-11.0)
[2024-06-28 07:28] LABS: ALANINE AMINOTRANSFERASE 24 U/L (12-78); ALBUMIN 3.5 G/DL (3.4-5.0); ALBUMIN/GLOBULIN RATIO 1.3 (1.1-1.5); ALKALINE PHOSPHATASE 52 IU/L (46-116); ANION GAP 11 (8-16); ASPARTATE AMINO TRANSFERASE 19 U/L (10-37); BILIRUBIN,TOTAL 1.1 MG/DL (0.1-1.0); BLOOD UREA NITROGEN 22 MG/DL (7-18); BUN/CREATININE RATIO 21.8 (10.0-20.0); CALCIUM 9.3 MG/DL (8.5-10.1); CHLORIDE 109 MMOL/L (99-107); CREATININE 1.01 MG/DL (0.60-1.10); GLUCOSE 148 MG/DL (70-104); MAGNESIUM 1.9 MG/DL (1.5-2.4); POTASSIUM 3.4 MMOL/L (3.5-5.1); PRO BRAIN NATRIURETIC PEPTIDE 2524 PG/ML (0-450); SODIUM 144 MMOL/L (135-145); TOTAL CARBON DIOXIDE 24.1 MMOL/L (24-32); TOTAL PROTEIN 6.3 G/DL (6.4-8.2); eCRCL 52 ML/MIN; eGFR 70 ML/MIN
[2024-06-28] MEDS: pantoprazole 40mg Tablet.DR PO SCH (08:28)
[2024-06-28] MEDS: fenofibrate 145mg tablet PO SCH (08:28)
[2024-06-28 08:30] VITALS: BP_SYST 167; PULSE 64
[2024-06-28] MEDS: losartan 50mg tablet PO SCH (08:30)
[2024-06-28] MEDS: aspirin 81mg tab.chew PO SCH ×2 (08:30→09:26)
[2024-06-28] MEDS: potassium Cl 20 mEq SR tablet PO STA (12:01)
== END 2024-06-28 15:14 | disposition home or self-care (01) | DRG 267 ==
LOC: PAS IN 07:29 → PCU 3S 14:24
PROVIDERS: ADMIT Internal Medicine Cardiovascular Disease; ATTEND Internal Medicine Cardiovascular Disease
PROC: B41D1ZZ Fluoroscopy of Aorta and Bilateral Lower Extremity Arteries using Low Osmolar Contrast (ICD-10-PCS; 2024-06-27)
PROC: 03HY32Z Insertion of Monitoring Device into Upper Artery, Percutaneous Approach (ICD-10-PCS; 2024-06-27)
PROC: 02RF38Z Replacement of Aortic Valve with Zooplastic Tissue, Percutaneous Approach (ICD-10-PCS; principal; 2024-06-27 10:10)
DX: I35.0 Nonrheumatic aortic (valve) stenosis (principal); Z00.6 Encounter for examination for normal comparison and control in clinical research program; I50.22 Chronic systolic (congestive) heart failure; I12.9 Hypertensive chronic kidney disease with stage 1 through stage 4 chronic kidney disease, or unspecified chronic kidney disease; N18.30 Chronic kidney disease, stage 3 unspecified; I25.10 Atherosclerotic heart disease of native coronary artery without angina pectoris; I48.91 Unspecified atrial fibrillation; E11.22 Type 2 diabetes mellitus with diabetic chronic kidney disease; I49.5 Sick sinus syndrome; E87.6 Hypokalemia; E78.5 Hyperlipidemia, unspecified; Z95.0 Presence of cardiac pacemaker; Z79.84 Long term (current) use of oral hypoglycemic drugs
CPT/HCPCS: 33361; 36415; 71045; 71046; 76937; 80053; 81001; 82948; 83036; 83735; 83880; 85025; 85347; 85610; 85730; 86885; 86900; 86901; 86920; 87081; 93005; 93308; A4615; A4618; A6258; A6449; C1756; C1760; C1769; C1894; G0378; J0360; J0690; J1644; J1815; J2003; J2250; J2371; J2704; J2720; J3010; J3370; J3372; J3490; J7030; J7040; J7050; J7120; Q9967

== ENCOUNTER 2024-07-24 14:39 | Emergency (ER) | payer MEDICARE, BC ==
[~2024-07-24] VITALS: Ht 172.7 cm; Wt 74.0 kg
[~2024-07-24 14:39] MED LIST changes: -ondansetron/PF 4mg/2ml inj IV PRN; -protamine sulfate 10mg/ml inj. ONE
[2024-07-24 14:56] VITALS: TEMP 97.6
--- NOTE | 2024-07-24 14:59 | Physician Documentation ---
History of Present Illness Stated Complaint: POST OP COMPLICATIONS Primary Medical Doctor: Dr. Lee HPI 84-year-old male presents to the ED with a complaint of three days of how of right groin pain and swelling. Reports the swelling is worse when he is sitting up, patient reports that feels as if he can feels pulse in the area. He states that on June 27 he had heart valve repair. He states that they access his heart from both of pelvic regions bilaterally. Denies shortness of breath denies any fevers, denies chest pain Day of Onset: July 24, 2024 Medication Reconciliation Allergies: Coded Allergies: codeine (Verified Allergy, Mild, 07/24/24) intolerance to codiene but not true allergy . he tolerated morphine in ER today metformin (Unverified Allergy, Unknown, 07/24/24) omeprazole (Unverified Allergy, Unknown, 07/24/24) prasugrel (Unverified Allergy, Unknown, 07/24/24) semaglutide (Unverified Allergy, Unknown, 07/24/24) Scheduled Aspirin (Aspirin), 1 TAB PO DAILY, (Reported) Clonidine HCl (Clonidine HCl), 1 TAB PO Q12H, (Reported) Empagliflozin (Jardiance), 1 TAB PO DAILY, (Reported) Fenofibrate (Fenofibrate), 1 TAB PO DAILY, (Reported) Insulin Glargine,Hum.rec.anlog (Lantus), 35 UNIT SQ QAM, (Reported) Insulin Glargine,Hum.rec.anlog* (Lantus*), 40 UNITS SUBCUT HS, (Reported) Linagliptin (Tradjenta), 1 TAB PO DAILY, (Reported) Losartan Potassium (Losartan Potassium), 1 TAB PO DAILY, (Reported) Metoprolol Succinate (Metoprolol Succinate), 1 TAB PO BID, (Reported) Pantoprazole Sodium (Pantoprazole Sodium), 1 TAB PO DAILY, (Reported) [beta prostate ], 3 HS, (Reported) [move free], DAILY, (Reported) Past Medical History Past Medical History: *CARDIOVASCULAR*, Angina, Atrial Fibrillation, Coronary Artery Disease, Hypertension, GERD, GI Bleed, Diabetes Past Surgical History: orthopedic surgeries, pacemaker, other Other Past Surgical History: Umbilical hernia repair Patient History: FH: cancer FH: cancer of digestive organ FH: heart failure Alcohol Use: Occasionally Drug Use: none Lives with: Spouse Lives In: Home Review of Systems ROS Groin swelling as stated above in the HPI, otherwise all systems are reviewed and negative. Physical Exam Physical Exam General: Alert, no apparent distress. HEENT: PERRL, EOMI, no injection, moist mucous membranes. Neck: Full range of motion. Respiratory: Lungs clear, no respiratory distress. Chest: No accessory muscle use. Cardiovascular: Regular rate and rhythm, no murmurs. Gastrointestinal: Soft, nontender, nondistended. Bowels sounds present. Extremities: Small area of swelling and tenderness to right groin at the area of puncture site, Normal range of motion, no deformity. Neurologic: Oriented x4. Psychiatric: Normal mood and affect. Skin: Normal color, warm and dry. No edema, no ecchymosis. Progress EKG/XRAY/CT/US/VASC/MRI Vascular : Impression RIGHT LOWER EXTREMITY VENOUS DOPPLER ULTRASOUND CLINICAL HISTORY: Groin pain. Elevated D-dimer. TECHNIQUE: Grayscale ultrasound with compression, color Doppler flow imaging with pulsed duplex sonography of the right lower extremity deep venous system from the common femoral vein through the popliteal vein is performed. COMPARISON: None FINDINGS: Right common femoral vein: Negative. Right greater saphenous vein: Negative. Right deep femoral vein: Negative. Right femoral vein: Negative. Right popliteal vein: Negative. Left common femoral vein: Negative. IMPRESSION: No sonographic evidence of deep venous thrombosis in the right lower extremity at this time. Dictated by:ISRA RYAN MD Dictation date and time:07/24/242005 Electronically Signed by: ISRA RYAN MD Date and Time: 07/24/242005 Transcribed: [facility] Medical Decision Making Findings This 84-year-old male presented with swelling and discomfort in his right groin at the access site used during his aortic valve replacement several weeks ago, patient reports discomfort not pain at the site which is reassuring. A vascular ultrasound of the area was obtained and indicated no venous clot and no arterial pseudoaneurysm. Additionally reassuring patient reports no chest pain, shortness of breath to make me suspicious for pulmonary embolism, access site did not have erythema, induration or fluctuance to suspect infection, and remainder of physical exam benign vital signs stable. D-Dimer below age adjusted cutoff for suspicion for VTE. Patient is appropriate for outpatient follow up with primary care. This time I suspect swelling and discomfort in the area is related to scar tissue from access site. Patient provided followup instructions and return to care precautions which he verbalized understanding of. Differential Dx:Considerations: Include: Other (Pulmonary embolism, DVT, pseudoaneurysm, abscess, cellulitis) Departure Disposition: HOME / SELF CARE / HOMELESS Impression: Primary Impression: Groin pain, chronic, right Condition: Improved Additional Instructions: The ultrasound of your groin did not show any evidence of an aneurysm or a blood clot, as we discussed the area feels like he may have some scar tissue in the area that you had your procedure, please follow up with your primary care provider in the next few days. Please return to the emergency department for any new or worsening concerning symptoms including but not limited to swelling to your leg, shortness of breath, or chest pain. Referrals: NO PRIMARY CARE PROVIDER (PCP) Education Educated: Patient Educated regarding: diagnosis, treatment, prognosis, need for follow up Signature Scribe Signature: No scribe Attestation: The note accurately reflects work and decisions made by me.ATUL Eller 07/25/24 01:58 ALLEN ADAMS NP July 24, 2024 14:59 CORAZON PIERRE July 24, 2024 18:41
[2024-07-24 15:59] LABS: BASOPHILS % (AUTO) 0.6 % (0-1); EOSINOPHILS # (AUTO) 0.1 X10'3 (0-0.9); EOSINOPHILS % (AUTO) 1.5 % (0-6); HEMATOCRIT 45.8 % (42.0-52.0); HEMOGLOBIN 15.7 g/dl (14.0-17.9); LYMPHOCYTES % (AUTO) 12.7 % (21-51); MEAN CORPUSCULAR HEMOGLOBIN 29.1 PG (27.0-31.0); MEAN CORPUSCULAR HGB CONC 34.3 g/dL (33.0-36.5); MEAN CORPUSCULAR VOLUME 84.6 FL (78-98); MEAN PLATELET VOLUME 9.7 FL (7.4-10.4); MONOCYTES # (AUTO) 0.5 X10'3 (0-0.9); MONOCYTES % (AUTO) 6.7 % (2-12); NEUTROPHILS # (AUTO) 6.1 X10'3 (1.8-7.7); NEUTROPHILS % (AUTO) 78.5 % (42-75); PLATELET COUNT 125 X10'3 (140-440); RED BLOOD COUNT 5.42 X10'6 (4.70-6.10); RED CELL DISTRIBUTION WIDTH 14.9 % (11.5-14.5); WHITE BLOOD COUNT 7.8 X10'3 (4.5-11.0)
[2024-07-24 16:10] LABS: D-DIMER 0.58 MG/L FEU (0-0.50)
[2024-07-24 16:17] LABS: ALANINE AMINOTRANSFERASE 33 U/L (12-78); ALBUMIN 3.9 G/DL (3.4-5.0); ALBUMIN/GLOBULIN RATIO 1.3 (1.1-1.5); ALKALINE PHOSPHATASE 68 IU/L (46-116); ANION GAP 12 (8-16); ASPARTATE AMINO TRANSFERASE 25 U/L (10-37); BILIRUBIN,TOTAL 0.3 MG/DL (0.1-1.0); BLOOD UREA NITROGEN 20 MG/DL (7-18); BUN/CREATININE RATIO 16.7 (10.0-20.0); CALCIUM 9.2 MG/DL (8.5-10.1); CHLORIDE 106 MMOL/L (99-107); GLUCOSE 194 MG/DL (70-104); POTASSIUM 3.9 MMOL/L (3.5-5.1); SODIUM 141 MMOL/L (135-145); TOTAL CARBON DIOXIDE 23.3 MMOL/L (24-32); TOTAL PROTEIN 6.8 G/DL (6.4-8.2); eCRCL 44 ML/MIN; eGFR 58 ML/MIN
[2024-07-24 18:11] VITALS: BP 142/65; PULSE 87; RESP 15; O2SAT 99
--- NOTE | 2024-07-24 20:09 | VASCULAR REPORT ---
RIGHT LOWER EXTREMITY VENOUS DOPPLER ULTRASOUND CLINICAL HISTORY: Groin pain. Elevated D-dimer. TECHNIQUE: Grayscale ultrasound with compression, color Doppler flow imaging with pulsed duplex sonog larisa of the right lower extremity deep venous system from the common femoral vein through the poplit eal vein is performed. COMPARISON: None FINDINGS: Right common femoral vein: Negative. Right greater saphenous vein: Negative. Right deep femoral vein: Negative. Right femoral vein: Negative. Right popliteal vein: Negative. Left common femoral vein: Negative. IMPRESSION: No sonographic evidence of deep venous thrombosis in the right lower extremity at this time.
--- NOTE | 2024-07-25 06:42 | VASCULAR REPORT ---
BILATERAL Lower Extremity Arterial Duplex Date: 07/24/2024 07:15 PM Clinical History: right groin pain s/p heart cath 06-27-24 Comparison: None Technique: Duplex Doppler evaluation including color Doppler and spectral/pulsed waveform analysis of the lower extremity arteries was performed. Finding: RIGHT: Peak systolic velocities are as follows: ELECTRICAL SIGN WIRER 91 cm/s Deep femoral 100 cm/s SFA proximal 70 cm/s REFERENCE VALUES, [facility]) vascular Imaging Lab Criteria: Peak systolic velocity ranges (in cm/sec) are as follows: <150 cm/s - <20 % stenosis 150-200 cm/s - 20-49% stenosis 200-300 cm/s - 50-75% stenosis >300 cm/s -> 75% stenosis IMPRESSION: No sonographic evidence of pseudoaneurysm in the right groin.
== END 2024-07-24 20:04 | disposition home or self-care (01) ==
LOC: ER 14:39
DX: R10.31 Right lower quadrant pain (principal); E11.9 Type 2 diabetes mellitus without complications; I10 Essential (primary) hypertension; I25.10 Atherosclerotic heart disease of native coronary artery without angina pectoris; I48.91 Unspecified atrial fibrillation; Z88.5 Allergy status to narcotic agent; Z95.0 Presence of cardiac pacemaker; Z79.82 Long term (current) use of aspirin
CPT/HCPCS: 36415; 80053; 85025; 85379; 93926; 93971; 99284